=== PATIENT | female | born 1950 | race Caucasian/White ===

== ENCOUNTER 2017-12-08 20:45 | Inpatient (IN) | payer MEDICARE, MEDICAID ==
--- NOTE | 2017-12-08 20:55 | ED Physician Chart ---
ED Chief Complaint/HPI - Patient Information Date Seen:: 12/08/17 Time Seen:: 20:45 Chief Complaint:: Agitation History of Present Illness:: onset x one day of agitation and aggressive behavior; no report of SIs, trauma, H/as, neck pain, C/P, SOB, Abd. pain, A/N/V/D/C, fever, chills, or urinary s/s Historian:: Patient, EMS Review:: Nurse's Note Reviewed, Old Chart Reviewed, EMS run form Reviewed ED Review of Systems - Review of Systems General/Constitutional: No fever, No chills, No weight loss, No weakness, No diaphoresis, No edema, No loss of appetite Skin: No skin lesions, No rash, No bruising Head: No headache, No light-headedness Eyes: No loss of vision, No pain, No diplopia ENT: No earache, No nasal drainage, No sore throat, No tinnitus Neck: No neck pain, No swelling, No thyromegaly, No stiffness, No mass noted Cardio Vascular: No chest pain, No palpitations, No PND, No orthopnea, No edema Pulmonary: No SOB, No cough, No sputum, No wheezing GI: No nausea, No vomiting, No diarrhea, No pain, No melena, No hematochezia, No constipation, No hematemesis G/U: No dysuria, No frequency, No hematuria, No nacturia Dehydration Plant Operator: No vaginal discharge, No abnormal vaginal bleed, No contraction Musculoskeletal: No bone or joint pain, No back pain, No muscle pain Endocrine: No polyuria, No polydipsia Psychiatric: Prior psych history, No depression, Anxiety, No suicidal ideation, No homicidal ideation, No auditory hallucination, No visual hallucination Hematopoietic: No bruising, No lymphadenopathy Allergic/Immuno: No urticaria, No angioedema Neurological: No syncope, No focal symptoms, No weakness, No paresthesia, No headache, No seizure, No dizziness, No confusion, No vertigo ED Past Medical History - Past Medical History Obtainable: Yes Past Medical History: HTN, CAD, Dyslipidemia Family History: Heart disease, HTN Social History: Non Smoker, No Alcohol, No Drug Use, Single, Care Facility Surgical History: CABG Psychiatricy History: Bipolar Medication: Reviewed Family Medical History - Family Member Mother History Unknown: Yes ED Physical Exam - Physical Examination General/Constitutional: Awake, Well-developed, well-nourished, Alert, No distress, GCS 15, Non-toxic appearing, Ambulatory Head: Atraumatic Eyes: Lids, conjuctiva normal, PERRL, EOMI Skin: Nl inspection, No rash, No skin lesions, No ecchymosis, Well hydrated, No lymphadenopathy ENMT: External ears, nose nl, TM canals nl, Nasal exam nl, Lips, teeth, gums nl , Oropharynx nl, Tonsils nl Neck: Nontender, Full ROM w/o pain, No JVD, No nuchal rigidity, No bruit, No mass, No stridor Respiratory: Nl effort/Exclusion, Clear to Auscultation, No Wheeze/Rhonchi/Rales Cardio Vascular: RRR, No murmur, gallop, rubs, NL S1 S2, Carotid/Femoral/Distal pulses equal bilaterally GI: No tenderness/rebounding/guarding, No organomegaly, No hernia, Normal BS's, Nondistended, No mass/bruits, No McBurney tenderness : No CVA tenderness Extremities: No tenderness or effusion, Full ROM, normal strength in all extremities, No edema, Normal digits & nails Neuro/Psych: Alert/oriented, DTR's symmetric, Normal sensory exam, Normal motor strength, Judgement/insight normal, Mood normal, Normal gait, No focal deficits Misc: Normal back, No paraspinal tenderness ED Labs/Radiology/EKG Results - Lab Results Comments:: U/A: + Nitrates; + Bacteria - EKG Interpretations EKG Time:: 21:00 Rate & Rhythm: 65; NSR Comments:: non-specific st-t changes ED Septic Shock - . Is Septic Shock (SBP<90, OR Lactate>4 mmol\L) present?: No ED Reassessment (Disposition) - Reassessment Reassessment Condition:: Improved - Diagnosis Diagnosis:: UTI; Agitation; Psychosis; Bipolar Disorder; Medical Clearance - Aftercare/Follow up Instructions Aftercare/Follow-Up Instructions:: Counseled pt regarding lab results/diagnosis & need follow up, Counseled pt & family regarding lab results/diagnosis & need follow up - Patient Disposition Discharge/Transfer:: Acute Care w/in this hosp Admitted to:: [facility] Condition at Disposition:: Stable, Improved
[2017-12-08] MEDS ORDERED: Haloperidol Lactate 5 mg/mL 1mL Vial IM STA (23:09)
[2017-12-08] MEDS ORDERED: Haloperidol Lactate 5 mg/mL 1mL Vial ONE (23:16)
[2017-12-08 23:51] LABS: URINE MICROSCOPIC INDICATED? YES; URINE SOURCE CLEAN C
[2017-12-09 00:02] LABS: URINE BILIRUBIN NEGATIVE (NEGATIVE); URINE BLOOD NEGATIVE (NEGATIVE); URINE GLUCOSE (UA) NEGATIVE (NEGATIVE); URINE KETONE NEGATIVE (NEGATIVE); URINE LEUKOCYTE ESTERASE NEGATIVE (NEGATIVE); URINE NITRATE POSITIVE (NEGATIVE); URINE PROTEIN NEGATIVE (NEGATIVE); URINE UROBILINOGEN 0.2 E.U./dL (0.2 - 1.0)
[2017-12-09 00:04] LABS: URINE CLARITY CLEAR (CLEAR); URINE COLOR YELLOW
[2017-12-09 00:05] LABS: URINE BACTERIA MODERATE /hpf (NONE SEEN); URINE EPITHELIAL CELLS FEW /lpf (FEW); URINE RBC 0-2 /hpf (0-5); URINE WBC 0-2 /hpf (0-5)
[2017-12-09 00:20] LABS: AMPHETAMINE URINE NEGATIVE (NEGATIVE); BARBITURATES URINE NEGATIVE (NEGATIVE); BENZODIAZEPINES QUAL URINE POSITIVE (NEGATIVE); CANNABINOID THC NEGATIVE (NEGATIVE); COCAINE METABOLITE QUAL URINE NEGATIVE (NEGATIVE); METHADONE URINE NEGATIVE (NEGATIVE); METHAMPHETAMINES QUAL URINE NEGATIVE (NEGATIVE); OPIATES (MORPHINE) QUAL. URINE NEGATIVE (NEGATIVE); PHENCYCLIDINE (PCP) URINE NEGATIVE (NEGATIVE); TRICYCLICS (TCA) QUAL. URINE NEGATIVE (NEGATIVE)
[2017-12-09 00:33] LABS: % BASOPHILS 3.3 % (0.0-2.0); % EOSINOPHILS 3.1 % (0.0-5.0); % LYMPHOCYTES 46.1 % (20.0-50.0); % MONOCYTES 2.9 % (2.0-10.0); % NEUTROPHILS 44.6 % (40.0-80.0); BASOPHILE ABSOLUTE 0.2 Th/cumm (0-0.2); EOSINOPHILE ABSOLUTE 0.1 Th/cmm (0.1-0.4); HEMATOCRIT 37.6 % (41.0-60); HEMOGLOBIN 12.1 gm/dL (12-16); LYMPHOCYTE ABSOLUTE 2.1 Th/cmm (1.5-3.0); MEAN CELL VOLUME 75.2 fl (81-100); MEAN CORPUSCULAR HEMOGLOBIN 24.2 pg (27.0-31.0); MEAN CORPUSCULAR HGB CONC 32.2 pg (28.0-36.0); MEAN PLATELET VOLUME 8.2 fl; MONOCYTE ABSOLUTE 0.1 Th/cmm (0.3-1.0); NEUTROPHILE ABSOLUTE 2.1 Th/cmm (1.8-8.0); PLATELET COUNT 244 Th/cmm (150-400); RED CELL DISTRIBUTION WIDTH 15.8 % (11.5-20.0)
[2017-12-09 01:09] LABS: WHITE BLOOD COUNT 4.6 Th/cmm (4.8-10.8)
[2017-12-09 01:15] LABS: ALB/GLOB RATIO 1.2 (1.0-1.8); ALBUMIN 3.7 gm/dL (3.7-5.3); ALKALINE PHOSPHATASE 88 U/L (34-104); ANION GAP 12.9 (7.0-16.0); BILIRUBIN,TOTAL 0.7 mg/dL (0.3-1.0); BUN - UREA NITROGEN 20 mg/dL (7-25); CALCIUM SERUM 9.5 mg/dL (8.6-10.3); CARBON DIOXIDE 28.6 mEq/L (21.0-31.0); CHLORIDE 99 mEq/L (98-107); CHOLESTEROL 137 mg/dL (<200); CREATININE - SERUM 1.1 mg/dL (0.6-1.2); GFR AFRICAN-AMERICAN > 60.0 ml/min (>90); GFR NON AFRICAN-AMERICAN 52.8 ml/min; GLUCOSE 122 mg/dL (70-105); HDL -HIGH DENSITY LIPOPROTEIN 56 mg/dL (23-92); POTASSIUM SERUM 3.5 mEq/L (3.5-5.1); SGOT 25 U/L (13-39); SGPT/ALT 13 U/L (7-52); SODIUM SERUM 137 mEq/L (136-145); TOTAL PROTEIN,SERUM 6.8 gm/dL (6.0-8.3); TRIGLYCERIDES 87 mg/dL (<150)
[2017-12-09 01:32] LABS: ACETAMINOPHEN < 10.0 ug/mL (10.0-30.0); SALICYLATES (ASPIRIN) < 25.0 mg/L (30.0-100.0)
[2017-12-09 03:26] VITALS: BP 167/97
[2017-12-09] MEDS: Diltiazem 30 mg Tab PO SCH (09:31)
[2017-12-09] MEDS ORDERED: Non-Formulary Item 1 EA (Meloxicam [Meloxicam] 15 MG) PO SCH (21:00)
[2017-12-10] MEDS: Diltiazem 30 mg Tab PO SCH (08:22)
--- NOTE | 2017-12-10 12:43 | History & Physical ---
ADMIT DATE: 12/09/2017 HISTORY OF PRESENT ILLNESS: The patient basically very well known to me. The patient came in for severe agitation. The patient is known to have history of COPD, history of heart disease, status post pacemaker, history of fibromyalgia and history of bipolar disorder. REVIEW OF SYSTEMS: Basically complaining of no chest pain, no abdominal pain, no nausea, vomiting, no shortness of breath and no seizures. PAST MEDICAL HISTORY: As enumerated above. The patient has a history of hypertension, history of coronary artery disease status post pacemaker, history of hyperlipidemia and the patient has COPD, history of fibromyalgia. PHYSICAL EXAMINATION: HEAD: Normal. ENT: Normal. NECK: Supple, nontender. LUNGS: Clear. CARDIOVASCULAR SYSTEM: S1, S2 heard. ABDOMEN: Soft. Bowel sounds are heard. CENTRAL NERVOUS SYSTEM: Grossly normal except agitation. DIAGNOSES: Acute agitation, acute psychosis, bipolar disorder, UTI, history of pacemaker and history of severe neuropathy and I will follow the patient medically and I will have Dr. Us see the patient and I will follow the patient. JOB# [id number]
--- NOTE | 2017-12-10 13:51 | History & Physical ---
ADMIT DATE: 12/10/2017 IDENTIFYING INFORMATION: The patient is a 67-year-old female. CHIEF COMPLAINT: No answer. HISTORY OF PRESENT ILLNESS: The patient was admitted because of aggressive behavior, verbally abusive. She was very agitated. The patient was psychotic, history of bipolar disorder. The patient herself was a poor historian and she was upset, would not answer any of my question, unpredictable, impulsive, needing redirection. PAST PSYCHIATRIC HISTORY: Bipolar disorder. MEDICATIONS: The patient has been on Lamictal 100 mg daily, Neurontin 600 mg 3 times a day and Cymbalta 60 mg daily. FAMILY AND SOCIAL HISTORY: The patient was very agitated, would not participate with me in any conversation, very agitated. MEDICAL HISTORY: Deferred to Dr. Joseph, apparently he knows the patient well and has been treating her for a while and he has diagnosed her with COPD, UTI infection. She has a . MENTAL STATUS EXAMINATION: The patient is uncooperative, not wanting to answer any of my question. She wants to be out of here, unable to participate in meaningful conversation with a history of bipolar disorder, sleep, appetite, suicide and homicide, unable to test her memory, concentration because of her agitation. Insight and judgment is impaired. IMPRESSION: 1. Bipolar disorder with psychosis. 2. Early dementia MEDICAL DIAGNOSIS: As per Dr. Joseph. Her assets, she is accepting treatment. Negative poor coping skills. INITIAL TREATMENT PLAN: The patient will be continued with her medications. We will do group therapy, milieu therapy, and individual therapy. ESTIMATED LENGTH OF STAY: 3-7 days. DISCHARGE CRITERIA: Decrease agitation, no longer acting out. After discharge, outpatient. JOB# [id number]
[2017-12-11] MEDS: Diltiazem 30 mg Tab PO SCH (09:09)
--- NOTE | 2017-12-11 12:16 | General Progress Note ---
Subjective - Review of Systems Events since last encounter: patient irritable confused disorganized Objective - Results Result Diagrams: 12/09/17 00:29 12/09/17 00:40 Recent Labs: Laboratory Last Values WBC 4.6 Th/cmm (4.8-10.8) L 12/09/17 00:29 RBC 5.00 Mil/cmm (3.80-5.20) 12/09/17 00:29 Hgb 12.1 gm/dL (12-16) 12/09/17 00:29 Hct 37.6 % (41.0-60) L 12/09/17 00:29 MCV 75.2 fl (81-100) L 12/09/17 00:29 MCH 24.2 pg (27.0-31.0) L 12/09/17:29 MCHC Differential 32.2 pg (28.0-36.0) 12/09/17 00: RDW 15.8 % (11.5-20.0) 12/09/17 00: Plt Count 244 Th/cmm (150-400) 12/09/17 00:29 MPV 8.2 fl 12/09/17 00:29 Neutrophils % 44.6 % (40.0-80.0) 12/09/17: Lymphocytes % 46.1 % (20.0-50.0) 12/09/17 00: Monocytes % 2.9 % (2.0-10.0) 12/09/17 00: Eosinophils % 3.1 % (0.0-5.0) 12/09/17 00: Basophils % 3.3 % (0.0-2.0) H 12/09/17 00:29 Sodium 137 mEq/L (136-145) 12/09/17 00:40 Potassium 3.5 mEq/L (3.5-5.1) 12/09/17 00:40 Chloride 99 mEq/L (98-107) 12/09/17 00:40 Carbon Dioxide 28.6 mEq/L (21.0-31.0) 12/09/17 00:40 Anion Gap 12.9 (7.0-16.0) 12/09/17 00:40 BUN 20 mg/dL (7-25) 12/09/17 00:40 Creatinine 1.1 mg/dL (0.6-1.2) 12/09/17 00:40 Est GFR ( Amer) > 60.0 ml/min (>90) 12/09/17 00:40 Est GFR (Non-Af Amer) 52.8 ml/min 12/09/17 00:40 BUN/Creatinine Ratio 18.2 12/09/17 00:40 Glucose 122 mg/dL (70-105) H 12/09/17 00:40 POC Glucose 127 MG/DL (70 - 105) H 12/10/17 06:33 Hemoglobin A1c % 7.0 % (4.0-6.0) H 12/09/17 00:40 Calcium 9.5 mg/dL (8.6-10.3) 12/09/17 00:40 Total Bilirubin 0.7 mg/dL (0.3-1.0) 12/09/17 00:40 AST 25 U/L (13-39) 12/09/17 00:40 ALT 13 U/L (7-52) 12/09/17 00:40 Alkaline Phosphatase 88 U/L (34-104) 12/09/17 00:40 Total Protein 6.8 gm/dL (6.0-8.3) 12/09/17 00:40 Albumin 3.7 gm/dL (3.7-5.3) 12/09/17 00:40 Globulin 3.1 gm/dL 12/09/17 00:40 Albumin/Globulin Ratio 1.2 (1.0-1.8) 12/09/17 00:40 Triglycerides 87 mg/dL (<150) 12/09/17 00:40 Cholesterol 137 mg/dL (<200) 12/09/17 00:40 LDL Cholesterol Direct 63 mg/dL (75-193) L 12/09/17 00:40 HDL Cholesterol 56 mg/dL (23-92) 12/09/17 00:40 TSH 0.34 uIU/ml (0.34-5.60) 12/09/17 00:40 Urine Source CLEAN C 12/08/17 23:40 Urine Color YELLOW 12/08/17 23:40 Urine Clarity CLEAR (CLEAR) 12/08/17 23:40 Urine pH 6.0 (4.6 - 8.0) 12/08/17 23:40 Ur Specific [place] 1.010 (1.005-1.030) 12/08/17 23:40 Urine Protein NEGATIVE mg/dL (NEGATIVE) 12/08/17 23:40 Urine Glucose (UA) NEGATIVE mg/dL (NEGATIVE) 12/08/17 23:40 Urine Ketones NEGATIVE mg/dL (NEGATIVE) 12/08/17 23:40 Urine Blood NEGATIVE (NEGATIVE) 12/08/17 23:40 Urine Nitrate POSITIVE (NEGATIVE) H 12/08/17 23:40 Urine Bilirubin NEGATIVE (NEGATIVE) 12/08/17 23:40 Urine Urobilinogen 0.2 E.U./dL (0.2 - 1.0) 12/08/17 23:40 Ur Leukocyte Esterase NEGATIVE (NEGATIVE) 12/08/17 23:40 Urine RBC 0-2 /hpf (0-5) 12/08/17 23:40 Urine WBC 0-2 /hpf (0-5) 12/08/17 23:40 Ur Epithelial Cells FEW /lpf (FEW) 12/08/17 23:40 Urine Bacteria MODERATE /hpf (NONE SEEN) H 12/08/17 23:40 Salicylates < 25.0 mg/L (30.0-100.0) L 12/09/17 00:40 Urine Opiates Screen NEGATIVE (NEGATIVE) 12/08/17 23:40 Urine Methadone Screen NEGATIVE (NEGATIVE) 12/08/17 23:40 Acetaminophen < 10.0 ug/mL (10.0-30.0) L 12/09/17 00:40 Ur Barbiturates Screen NEGATIVE (NEGATIVE) 12/08/17 23:40 Ur Tricyclics Screen NEGATIVE (NEGATIVE) 12/08/17 23:40 Ur Phencyclidine Scrn NEGATIVE (NEGATIVE) 12/08/17 23:40 Amphetamines Screen NEGATIVE (NEGATIVE) 12/08/17 23:40 U Methamphetamines Scrn NEGATIVE (NEGATIVE) 12/08/17 23:40 U Benzodiazepines Scrn POSITIVE (NEGATIVE) H 12/08/17 23:40 U Cocaine Metab Screen NEGATIVE (NEGATIVE) 12/08/17 23:40 U Cannabinoids Screen NEGATIVE (NEGATIVE) 12/08/17 23:40 Ethyl Alcohol < 10 mg/dL (0-10) 12/09/17 00:40 RPR NONREACTIVE (NONREACTIVE) 12/09/17 00:40 - Physical Exam Vitals and I&O: Vital Signs Temp 97.5 F 12/11/17 06:43 Pulse 69 12/11/17 09:15 Resp 20 12/11/17 06:43 BP 187/79 12/11/17 09:15 Pulse Ox 97 12/11/17 06:43 Intake & Output 12/10/17 12/11/17 12/11/17 18:59 06:59 18:59 Intake Total 500 480 Balance 500 480 Intake: Oral 500 480 Other: # Voids 4 1 # Bowel Movements 0 Stool Characteristics Formed Active Medications: Current Medications Aspirin (Ecotrin) 81 mg PO DAILY [facility] Stop: 02/07/18 08:59 Last Admin: 12/11/17 09:18 Dose: 81 mg Baclofen (Lioresal) 10 mg PO BID [facility] Stop: 02/07/18 08:59 Last Admin: 12/11/17 09:18 Dose: 10 mg Cholecalciferol (Vitamin D3) 2,000 iu PO DAILY [facility] Stop: 02/07/18 08:59 Last Admin: 12/11/17 09:16 Dose: 2,000 iu Diclofenac Sodium (Voltaren) 25 mg PO HS [facility] Stop: 02/08/18 20:59 Last Admin: 12/10/17 21:37 Dose: Not Given Diltiazem HCl (Cardizem) 30 mg PO DAILY [facility] Stop: 02/07/18 08:59 Last Admin: 12/10/17 08:22 Dose: 30 mg Docusate Sodium (Colace) 250 mg PO DAILY [facility] Stop: 02/07/18 08:59 Last Admin: 12/11/17 09:16 Dose: 250 mg Duloxetine HCl (Cymbalta) 60 mg PO DAILY [facility] Stop: 02/07/18 08:59 Last Admin: 12/11/17 09:15 Dose: 60 mg Famotidine (Pepcid) 20 mg PO BID [facility] Stop: 02/07/18 08:59 Last Admin: 12/11/17 09:17 Dose: 20 mg Gabapentin (Neurontin) 600 mg PO TID [facility] Stop: 02/07/18 08:59 Last Admin: 12/11/17 09:18 Dose: 600 mg Lamotrigine (Lamictal) 100 mg PO DAILY [facility] PRN Reason: Protocol Stop: 02/07/18 08:59 Last Admin: 12/11/17 09:17 Dose: 100 mg Lorazepam (Ativan) 1 mg PO Q6HR PRN; Protocol PRN Reason: Anxiety Stop: 02/07/18 03:14 Last Admin: 12/11/17 09:16 Dose: 1 mg Memantine (Namenda) 10 mg PO DAILY [facility] Stop: 02/07/18 08:59 Last Admin: 12/11/17 09:17 Dose: 10 mg Metformin HCl (Glucophage) 1,000 mg PO BIDWM [facility] Stop: 02/07/18 07:59 Last Admin: 12/11/17 08:23 Dose: 1,000 mg Nitroglycerin (Nitrostat) 0.4 mg SL Q5MIN PRN PRN Reason: Chest Pain Stop: 02/07/18 03:14 Oxybutynin Chloride (Ditropan) 5 mg PO BID [facility] Stop: 02/07/18 08:59 Last Admin: 12/11/17 09:17 Dose: 5 mg Pyridostigmine [place] (Mestinon) 60 mg PO BID [facility] Stop: 02/07/18 08:59 Last Admin: 12/11/17 09:25 Dose: 60 mg Quetiapine Fumarate (Seroquel) 12.5 mg PO BID [facility] PRN Reason: Protocol Stop: 02/07/18 08:59 Last Admin: 12/11/17 09:18 Dose: 12.5 mg Tramadol HCl (Ultram) 50 mg PO BID PRN PRN Reason: Pain (Mild) Stop: 02/07/18 03:14 Last Admin: 12/10/17 05:23 Dose: 50 mg Trazodone HCl (Desyrel) 50 mg PO [facility] PRN Reason: Protocol Stop: 02/07/18 20:59 Last Admin: 12/10/17 21:35 Dose: 50 mg Valsartan (Diovan) 160 mg PO BID [facility] Stop: 02/07/18 08:59 Last Admin: 12/11/17 09:15 Dose: 160 mg
--- NOTE | 2017-12-12 02:04 | Progress Notes ---
DATE: 12/11/[address] Us. SUBJECTIVE: Case discussed with staff of the patient. The patient today was calmer, less agitated; however, she reported that this is March. She is not sure of the date. She is confused. She does not believe she needs to be here. She has no idea why she was brought here, have no idea where she was, very agitated upon admission. She was psychotic. She continues to be unable to make safe plan for self-care or participate in a meaningful conversation. No side effects with the medication and she is also demented. She is on Namenda 10 mg daily and she is on Cymbalta 60 mg daily, Seroquel 12.5 mg twice a day with no side effects, no sedation, no nausea, no extrapyramidal symptoms. PLAN: We will continue to work with the patient in group therapy, milieu therapy, and adjust the medications as needed. JOB# [id number]
[2017-12-12] MEDS: Diltiazem 30 mg Tab PO SCH (08:45)
--- NOTE | 2017-12-12 20:28 | Internal Medicine Prog Note ---
Internal Medicine Objective - Results Result Diagrams: 12/09/17 00:29 12/09/17 00:40 Recent Labs: Laboratory Last Values WBC 4.6 Th/cmm (4.8-10.8) L 12/09/17 00:29 RBC 5.00 Mil/cmm (3.80-5.20) 12/09/17 00:29 Hgb 12.1 gm/dL (12-16) 12/09/17 00: Hct 37.6 % (41.0-60) L 12/09/17:29 MCV 75.2 fl (81-100) L 12/09/17 00:29 MCH 24.2 pg (27.0-31.0) L 12/09/17: MCHC Differential 32.2 pg (28.0-36.0) 12/09/17 00: RDW 15.8 % (11.5-20.0) 12/09/17 00: Plt Count 244 Th/cmm (150-400) 12/09/17 00: MPV 8.2 fl 12/09/17 00: Neutrophils % 44.6 % (40.0-80.0) 12/09/17 00: Lymphocytes % 46.1 % (20.0-50.0) 12/09/17: Monocytes % 2.9 % (2.0-10.0) 12/09/17: Eosinophils % 3.1 % (0.0-5.0) 12/09/17: Basophils % 3.3 % (0.0-2.0) H 12/09/17 00:29 Sodium 137 mEq/L (136-145) 12/09/17 00:40 Potassium 3.5 mEq/L (3.5-5.1) 12/09/17 00:40 Chloride 99 mEq/L (98-107) 12/09/17 00:40 Carbon Dioxide 28.6 mEq/L (21.0-31.0) 12/09/17 00:40 Anion Gap 12.9 (7.0-16.0) 12/09/17 00:40 BUN 20 mg/dL (7-25) 12/09/17 00:40 Creatinine 1.1 mg/dL (0.6-1.2) 12/09/17 00:40 Est GFR ( Amer) > 60.0 ml/min (>90) 12/09/17 00:40 Est GFR (Non-Af Amer) 52.8 ml/min 12/09/17 00:40 BUN/Creatinine Ratio 18.2 12/09/17 00:40 Glucose 122 mg/dL (70-105) H 12/09/17 00:40 POC Glucose 127 MG/DL (70 - 105) H 12/10/17 06:33 Hemoglobin A1c % 7.0 % (4.0-6.0) H 12/09/17 00:40 Calcium 9.5 mg/dL (8.6-10.3) 12/09/17 00:40 Total Bilirubin 0.7 mg/dL (0.3-1.0) 12/09/17 00:40 AST 25 U/L (13-39) 12/09/17 00:40 ALT 13 U/L (7-52) 12/09/17 00:40 Alkaline Phosphatase 88 U/L (34-104) 12/09/17 00:40 Total Protein 6.8 gm/dL (6.0-8.3) 12/09/17 00:40 Albumin 3.7 gm/dL (3.7-5.3) 12/09/17 00:40 Globulin 3.1 gm/dL 12/09/17 00:40 Albumin/Globulin Ratio 1.2 (1.0-1.8) 12/09/17 00:40 Triglycerides 87 mg/dL (<150) 12/09/17 00:40 Cholesterol 137 mg/dL (<200) 12/09/17 00:40 LDL Cholesterol Direct 63 mg/dL (75-193) L 12/09/17 00:40 HDL Cholesterol 56 mg/dL (23-92) 12/09/17 00:40 TSH 0.34 uIU/ml (0.34-5.60) 12/09/17 00:40 Urine Source CLEAN C 12/08/17 23:40 Urine Color YELLOW 04 23:40 Urine Clarity CLEAR (CLEAR) 12/08/17 23:40 Urine pH 6.0 (4.6 - 8.0) 12/08/17 23:40 Ur Specific [place] 1.010 (1.005-1.030) 12/08/17 23:40 Urine Protein NEGATIVE mg/dL (NEGATIVE) 12/08/17 23:40 Urine Glucose (UA) NEGATIVE mg/dL (NEGATIVE) 12/08/17 23:40 Urine Ketones NEGATIVE mg/dL (NEGATIVE) 12/08/17 23:40 Urine Blood NEGATIVE (NEGATIVE) 12/08/17 23:40 Urine Nitrate POSITIVE (NEGATIVE) H 12/08/17 23:40 Urine Bilirubin NEGATIVE (NEGATIVE) 12/08/17 23:40 Urine Urobilinogen 0.2 E.U./dL (0.2 - 1.0) 12/08/17 23:40 Ur Leukocyte Esterase NEGATIVE (NEGATIVE) 12/08/17 23:40 Urine RBC 0-2 /hpf (0-5) 12/08/17 23:40 Urine WBC 0-2 /hpf (0-5) 12/08/17 23:40 Ur Epithelial Cells FEW /lpf (FEW) 12/08/17 23:40 Urine Bacteria MODERATE /hpf (NONE SEEN) H 12/08/17 23:40 Salicylates < 25.0 mg/L (30.0-100.0) L 12/09/17 00:40 Urine Opiates Screen NEGATIVE (NEGATIVE) 12/08/17 23:40 Urine Methadone Screen NEGATIVE (NEGATIVE) 12/08/17 23:40 Acetaminophen < 10.0 ug/mL (10.0-30.0) L 12/09/17 00:40 Ur Barbiturates Screen NEGATIVE (NEGATIVE) 12/08/17 23:40 Ur Tricyclics Screen NEGATIVE (NEGATIVE) 12/08/17 23:40 Ur Phencyclidine Scrn NEGATIVE (NEGATIVE) 12/08/17 23:40 Amphetamines Screen NEGATIVE (NEGATIVE) 12/08/17 23:40 U Methamphetamines Scrn NEGATIVE (NEGATIVE) 12/08/17 23:40 U Benzodiazepines Scrn POSITIVE (NEGATIVE) H 12/08/17 23:40 U Cocaine Metab Screen NEGATIVE (NEGATIVE) 12/08/17 23:40 U Cannabinoids Screen NEGATIVE (NEGATIVE) 12/08/17 23:40 Ethyl Alcohol < 10 mg/dL (0-10) 12/09/17 00:40 RPR NONREACTIVE (NONREACTIVE) 12/09/17 00:40 - Physical Exam Vitals and I&O: Vital Signs Temp 97.7 F 12/12/17 14:00 Pulse 61 12/12/17 17:17 Resp 20 12/12/17 14:00 BP 128/66 12/12/17 17:17 Pulse Ox 97 12/12/17 14:00 Intake & Output 12/12/17 12/12/17 12/13/17 06:59 18:59 06:59 Intake Total 240 1600 Balance 240 1600 Intake: Oral 240 1600 Other: # Voids 1 4 # Bowel Movements 1 Active Medications: Current Medications Aspirin (Ecotrin) 81 mg PO DAILY [facility] Stop: 02/07/18 08:59 Last Admin: 12/12/17 08:39 Dose: 81 mg Baclofen (Lioresal) 10 mg PO BID [facility] Stop: 02/07/18 08:59 Last Admin: 12/12/17 17:16 Dose: 10 mg Cholecalciferol (Vitamin D3) 2,000 iu PO DAILY [facility] Stop: 02/07/18 08:59 Last Admin: 12/12/17 08:37 Dose: 2,000 iu Diclofenac Sodium (Voltaren) 25 mg PO HS [facility] Stop: 02/08/18 20:59 Last Admin: 12/11/17 21:08 Dose: 25 mg Diltiazem HCl (Cardizem) 30 mg PO DAILY [facility] Stop: 02/07/18 08:59 Last Admin: 12/12/17 08:45 Dose: 30 mg Docusate Sodium (Colace) 250 mg PO DAILY [facility] Stop: 02/07/18 08:59 Last Admin: 12/12/17 08:36 Dose: 250 mg Duloxetine HCl (Cymbalta) 60 mg PO DAILY [facility] Stop: 02/07/18 08:59 Last Admin: 12/12/17 08:37 Dose: 60 mg Famotidine (Pepcid) 20 mg PO BID [facility] Stop: 02/07/18 08:59 Last Admin: 12/12/17 17:17 Dose: 20 mg Gabapentin (Neurontin) 600 mg PO TID [facility] Stop: 02/07/18 08:59 Last Admin: 12/12/17 13:42 Dose: 600 mg Lamotrigine (Lamictal) 100 mg PO DAILY [facility] PRN Reason: Protocol Stop: 02/07/18 08:59 Last Admin: 12/12/17 08:40 Dose: 100 mg Lorazepam (Ativan) 1 mg PO Q6HR PRN; Protocol PRN Reason: Anxiety Stop: 02/07/18 03:14 Last Admin: 12/12/17 10:02 Dose: 1 mg Memantine (Namenda) 10 mg PO DAILY [facility] Stop: 02/07/18 08:59 Last Admin: 12/12/17 08:39 Dose: 10 mg Metformin HCl (Glucophage) 1,000 mg PO BIDWM [facility] Stop: 02/07/18 07:59 Last Admin: 12/12/17 17:16 Dose: 1,000 mg Nitroglycerin (Nitrostat) 0.4 mg SL Q5MIN PRN PRN Reason: Chest Pain Stop: 02/07/18 03:14 Oxybutynin Chloride (Ditropan) 5 mg PO BID [facility] Stop: 02/07/18 08:59 Last Admin: 12/12/17 17:16 Dose: 5 mg Pyridostigmine [place] (Mestinon) 60 mg PO BID [facility] Stop: 02/07/18 08:59 Last Admin: 12/12/17 08:44 Dose: 60 mg Quetiapine Fumarate (Seroquel) 12.5 mg PO BID [facility] PRN Reason: Protocol Stop: 02/07/18 08:59 Last Admin: 12/12/17 17:17 Dose: 12.5 mg Tramadol HCl (Ultram) 50 mg PO BID PRN PRN Reason: Pain (Mild) Stop: 02/07/18 03:14 Last Admin: 12/12/17 10:02 Dose: 50 mg Trazodone HCl (Desyrel) 50 mg PO [facility] PRN Reason: Protocol Stop: 02/07/18 20:59 Last Admin: 12/11/17 21:08 Dose: 50 mg Valsartan (Diovan) 160 mg PO BID [facility] Stop: 02/07/18 08:59 Last Admin: 12/12/17 17:17 Dose: 160 mg
--- NOTE | 2017-12-12 23:47 | Progress Notes ---
DATE: 12/12/2017 Case discussed with staff of the patient, reviewed records. The patient today is alert. She is able to communicate. She reports she sleeps well, eat well. She was denying that she was hearing voices. She was much more cooperative. She is still, however, unpredictable, impulsive with her behavior ____, is extremely agitated and psychotic the first 2 days. She is diagnosed with dementia. Dr. Us had her on Namenda 10 mg daily and she is on Cymbalta 60 mg a day with no side effects and we will continue to work with the patient in group therapy, milieu therapy, and adjust medications. JOB# [id number]
[2017-12-13] MEDS: Diltiazem 30 mg Tab PO SCH (09:12)
--- NOTE | 2017-12-13 20:17 | Internal Medicine Prog Note ---
Internal Medicine Subjective - Subjective Service Date: 12/13/17 Patient seen and examined:: with staff Patient is:: awake Per staff patient has:: tolerating meds Internal Medicine Objective - Results Result Diagrams: 12/09/17 00:29 12/09/17 00:40 Recent Labs: Laboratory Last Values WBC 4.6 Th/cmm (4.8-10.8) L 12/09/17 00:29 RBC 5.00 Mil/cmm (3.80-5.20) 12/09/17 00:29 Hgb 12.1 gm/dL (12-16) 12/09/17 00:29 Hct 37.6 % (41.0-60) L 12/09/17 00:29 MCV 75.2 fl (81-100) L 12/09/17 00:29 MCH 24.2 pg (27.0-31.0) L 12/09/17 00:29 MCHC Differential 32.2 pg (28.0-36.0) 12/09/17 00:29 RDW 15.8 % (11.5-20.0) 12/09/17 00:29 Plt Count 244 Th/cmm (150-400) 12/09/17 00:29 MPV 8.2 fl 12/09/17 00:29 Neutrophils % 44.6 % (40.0-80.0) 12/09/17 00:29 Lymphocytes % 46.1 % (20.0-50.0) 12/09/17 00:29 Monocytes % 2.9 % (2.0-10.0) 12/09/17 00:29 Eosinophils % 3.1 % (0.0-5.0) 12/09/17 00:29 Basophils % 3.3 % (0.0-2.0) H 12/09/17 00:29 Sodium 137 mEq/L (136-145) 12/09/17 00:40 Potassium 3.5 mEq/L (3.5-5.1) 12/09/17 00:40 Chloride 99 mEq/L (98-107) 12/09/17 00:40 Carbon Dioxide 28.6 mEq/L (21.0-31.0) 12/09/17 00:40 Anion Gap 12.9 (7.0-16.0) 12/09/17 00:40 BUN 20 mg/dL (7-25) 12/09/17 00:40 Creatinine 1.1 mg/dL (0.6-1.2) 12/09/17 00:40 Est GFR ( Amer) > 60.0 ml/min (>90) 12/09/17 00:40 Est GFR (Non-Af Amer) 52.8 ml/min 12/09/17 00:40 BUN/Creatinine Ratio 18.2 12/09/17 00:40 Glucose 122 mg/dL (70-105) H 12/09/17 00:40 POC Glucose 127 MG/DL (70 - 105) H 12/10/17 06:33 Hemoglobin A1c % 7.0 % (4.0-6.0) H 12/09/17 00:40 Calcium 9.5 mg/dL (8.6-10.3) 12/09/17 00:40 Total Bilirubin 0.7 mg/dL (0.3-1.0) 12/09/17 00:40 AST 25 U/L (13-39) 12/09/17 00:40 ALT 13 U/L (7-52) 12/09/17 00:40 Alkaline Phosphatase 88 U/L (34-104) 12/09/17 00:40 Total Protein 6.8 gm/dL (6.0-8.3) 12/09/17 00:40 Albumin 3.7 gm/dL (3.7-5.3) 12/09/17 00:40 Globulin 3.1 gm/dL 12/09/17 00:40 Albumin/Globulin Ratio 1.2 (1.0-1.8) 12/09/17 00:40 Triglycerides 87 mg/dL (<150) 12/09/17 00:40 Cholesterol 137 mg/dL (<200) 12/09/17 00:40 LDL Cholesterol Direct 63 mg/dL (75-193) L 12/09/17 00:40 HDL Cholesterol 56 mg/dL (23-92) 12/09/17 00:40 TSH 0.34 uIU/ml (0.34-5.60) 12/09/17 00:40 Urine Source CLEAN C 12/08/17 23:40 Urine Color YELLOW 12/08/17 23:40 Urine Clarity CLEAR (CLEAR) 12/08/17 23:40 Urine pH 6.0 (4.6 - 8.0) 12/08/17 23:40 Ur Specific [place] 1.010 (1.005-1.030) 12/08/17 23:40 Urine Protein NEGATIVE mg/dL (NEGATIVE) 12/08/17 23:40 Urine Glucose (UA) NEGATIVE mg/dL (NEGATIVE) 12/08/17 23:40 Urine Ketones NEGATIVE mg/dL (NEGATIVE) 12/08/17 23:40 Urine Blood NEGATIVE (NEGATIVE) 12/08/17 23:40 Urine Nitrate POSITIVE (NEGATIVE) H 12/08/17 23:40 Urine Bilirubin NEGATIVE (NEGATIVE) 12/08/17 23:40 Urine Urobilinogen 0.2 E.U./dL (0.2 - 1.0) 12/08/17 23:40 Ur Leukocyte Esterase NEGATIVE (NEGATIVE) 12/08/17 23:40 Urine RBC 0-2 /hpf (0-5) 12/08/17 23:40 Urine WBC 0-2 /hpf (0-5) 12/08/17 23:40 Ur Epithelial Cells FEW /lpf (FEW) 12/08/17 23:40 Urine Bacteria MODERATE /hpf (NONE SEEN) H 12/08/17 23:40 Salicylates < 25.0 mg/L (30.0-100.0) L 12/09/17 00:40 Urine Opiates Screen NEGATIVE (NEGATIVE) 12/08/17 23:40 Urine Methadone Screen NEGATIVE (NEGATIVE) 12/08/17 23:40 Acetaminophen < 10.0 ug/mL (10.0-30.0) L 12/09/17 00:40 Ur Barbiturates Screen NEGATIVE (NEGATIVE) 12/08/17 23:40 Ur Tricyclics Screen NEGATIVE (NEGATIVE) 12/08/17 23:40 Ur Phencyclidine Scrn NEGATIVE (NEGATIVE) 12/08/17 23:40 Amphetamines Screen NEGATIVE (NEGATIVE) 12/08/17 23:40 U Methamphetamines Scrn NEGATIVE (NEGATIVE) 12/08/17 23:40 U Benzodiazepines Scrn POSITIVE (NEGATIVE) H 12/08/17 23:40 U Cocaine Metab Screen NEGATIVE (NEGATIVE) 12/08/17 23:40 U Cannabinoids Screen NEGATIVE (NEGATIVE) 12/08/17 23:40 Ethyl Alcohol < 10 mg/dL (0-10) 12/09/17 00:40 RPR NONREACTIVE (NONREACTIVE) 12/09/17 00:40 - Physical Exam Vitals and I&O: Vital Signs Temp 97.6 F 12/13/17 16:06 Pulse 60 12/13/17 16:39 Resp 20 12/13/17 16:06 BP 130/73 12/13/17 16:38 Pulse Ox 96 12/13/17 16:06 Intake & Output 12/13/17 12/13/17 12/14/17 06:59 18:59 06:59 Intake Total 360 1200 Balance 360 1200 Intake: Oral 360 1200 Other: # Voids 2 3 # Bowel Movements 0 1 Active Medications: Current Medications Aspirin (Ecotrin) 81 mg PO DAILY [facility] Stop: 02/07/18 08:59 Last Admin: 12/13/17 08:37 Dose: 81 mg Baclofen (Lioresal) 10 mg PO BID [facility] Stop: 02/07/18 08:59 Last Admin: 12/13/17 16:38 Dose: 10 mg Cholecalciferol (Vitamin D3) 2,000 iu PO DAILY [facility] Stop: 02/07/18 08:59 Last Admin: 12/13/17 08:37 Dose: 2,000 iu Diclofenac Sodium (Voltaren) 25 mg PO HS [facility] Stop: 02/08/18 20:59 Last Admin: 12/12/17 21:12 Dose: 25 mg Diltiazem HCl (Cardizem) 30 mg PO DAILY [facility] Stop: 02/07/18 08:59 Last Admin: 12/13/17 09:12 Dose: 30 mg Docusate Sodium (Colace) 250 mg PO DAILY [facility] Stop: 02/07/18 08:59 Last Admin: 12/13/17 09:00 Dose: 250 mg Duloxetine HCl (Cymbalta) 60 mg PO DAILY [facility] Stop: 02/07/18 08:59 Last Admin: 12/13/17 08:00 Dose: 60 mg Famotidine (Pepcid) 20 mg PO BID [facility] Stop: 02/07/18 08:59 Last Admin: 12/13/17 16:38 Dose: 20 mg Gabapentin (Neurontin) 600 mg PO TID [facility] Stop: 02/07/18 08:59 Last Admin: 12/13/17 13:28 Dose: 600 mg Lamotrigine (Lamictal) 100 mg PO DAILY [facility] PRN Reason: Protocol Stop: 02/07/18 08:59 Last Admin: 12/13/17 08:37 Dose: 100 mg Lorazepam (Ativan) 1 mg PO Q6HR PRN; Protocol PRN Reason: Anxiety Stop: 02/07/18 03:14 Last Admin: 12/13/17 13:55 Dose: 1 mg Memantine (Namenda) 10 mg PO DAILY [facility] Stop: 02/07/18 08:59 Last Admin: 12/13/17 08:40 Dose: 10 mg Metformin HCl (Glucophage) 1,000 mg PO BIDWM [facility] Stop: 02/07/18 07:59 Last Admin: 12/13/17 17:29 Dose: 1,000 mg Nitroglycerin (Nitrostat) 0.4 mg SL Q5MIN PRN PRN Reason: Chest Pain Stop: 02/07/18 03:14 Oxybutynin Chloride (Ditropan) 5 mg PO BID [facility] Stop: 02/07/18 08:59 Last Admin: 12/13/17 16:39 Dose: 5 mg Pyridostigmine [place] (Mestinon) 60 mg PO BID [facility] Stop: 02/07/18 08:59 Last Admin: 12/13/17 17:16 Dose: 60 mg Quetiapine Fumarate (Seroquel) 25 mg PO BID [facility] PRN Reason: Protocol Stop: 02/11/18 16:59 Last Admin: 12/13/17 16:39 Dose: 25 mg Tramadol HCl (Ultram) 50 mg PO BID PRN PRN Reason: Pain (Mild) Stop: 02/07/18 03:14 Last Admin: 12/13/17 13:28 Dose: 50 mg Trazodone HCl (Desyrel) 50 mg PO HS [facility] PRN Reason: Protocol Stop: 02/07/18 20:59 Last Admin: 12/12/17 21:12 Dose: 50 mg Valsartan (Diovan) 160 mg PO BID [facility] Stop: 02/07/18 08:59 Last Admin: 12/13/17 16:38 Dose: 160 mg HEENT: NC/AT Neck: Supple Lungs: CTAB Internal Medicine Assmt/Plan - Assessment Assessment: psychosis anemia dm - Plan Plan: cpm
--- NOTE | 2017-12-14 03:52 | Progress Notes ---
DATE: 12/13/2017 SUBJECTIVE: Case is discussed with staff of the patient and reviewed records. The patient is more able to give information. She is alert. She reports this is her first hospitalization. She reports that she is sleeping better, eating better, compliant with the medication with no side effects, no sedation, no nausea, no extrapyramidal symptoms. PLAN: I will be increasing her Seroquel to 25 mg twice a day. We will continue to work with the patient in group therapy, milieu therapy, and adjust medication as needed. JOB# [id number]
[2017-12-14] MEDS: Diltiazem 30 mg Tab PO SCH (08:35)
[2017-12-14] MEDS: Hydrocodone/APAP 5mg/325mg Tab PO PRN (14:07)
--- NOTE | 2017-12-14 14:15 | General Progress Note ---
Subjective - Review of Systems Events since last encounter: in no distress Objective - Results Result Diagrams: 12/09/17 00:29 12/09/17 00:40 Recent Labs: Laboratory Last Values WBC 4.6 Th/cmm (4.8-10.8) L 12/09/17 00:29 RBC 5.00 Mil/cmm (3.80-5.20) 12/09/17 00:29 Hgb 12.1 gm/dL (12-16) 12/09/17 00:29 Hct 37.6 % (41.0-60) L 12/09/17 00:29 MCV 75.2 fl (81-100) L 12/09/17 00: MCH 24.2 pg (27.0-31.0) L 12/09/17:29 MCHC Differential 32.2 pg (28.0-36.0) 12/09/17 00: RDW 15.8 % (11.5-20.0) 12/09/17 00: Plt Count 244 Th/cmm (150-400) 12/09/17 00:29 MPV 8.2 fl 12/09/17 00:29 Neutrophils % 44.6 % (40.0-80.0) 12/09/17: Lymphocytes % 46.1 % (20.0-50.0) 12/09/17: Monocytes % 2.9 % (2.0-10.0) 12/09/17 00: Eosinophils % 3.1 % (0.0-5.0) 12/09/17: Basophils % 3.3 % (0.0-2.0) H 12/09/17 00:29 Sodium 137 mEq/L (136-145) 12/09/17 00:40 Potassium 3.5 mEq/L (3.5-5.1) 12/09/17 00:40 Chloride 99 mEq/L (98-107) 12/09/17 00:40 Carbon Dioxide 28.6 mEq/L (21.0-31.0) 12/09/17 00:40 Anion Gap 12.9 (7.0-16.0) 12/09/17 00:40 BUN 20 mg/dL (7-25) 12/09/17 00:40 Creatinine 1.1 mg/dL (0.6-1.2) 12/09/17 00:40 Est GFR ( Amer) > 60.0 ml/min (>90) 12/09/17 00:40 Est GFR (Non-Af Amer) 52.8 ml/min 12/09/17 00:40 BUN/Creatinine Ratio 18.2 12/09/17 00:40 Glucose 122 mg/dL (70-105) H 12/09/17 00:40 POC Glucose 127 MG/DL (70 - 105) H 12/10/17 06:33 Hemoglobin A1c % 7.0 % (4.0-6.0) H 12/09/17 00:40 Calcium 9.5 mg/dL (8.6-10.3) 12/09/17 00:40 Total Bilirubin 0.7 mg/dL (0.3-1.0) 12/09/17 00:40 AST 25 U/L (13-39) 12/09/17 00:40 ALT 13 U/L (7-52) 12/09/17 00:40 Alkaline Phosphatase 88 U/L (34-104) 12/09/17 00:40 Total Protein 6.8 gm/dL (6.0-8.3) 12/09/17 00:40 Albumin 3.7 gm/dL (3.7-5.3) 12/09/17 00:40 Globulin 3.1 gm/dL 12/09/17 00:40 Albumin/Globulin Ratio 1.2 (1.0-1.8) 12/09/17 00:40 Triglycerides 87 mg/dL (<150) 12/09/17 00:40 Cholesterol 137 mg/dL (<200) 12/09/17 00:40 LDL Cholesterol Direct 63 mg/dL (75-193) L 12/09/17 00:40 HDL Cholesterol 56 mg/dL (23-92) 12/09/17 00:40 TSH 0.34 uIU/ml (0.34-5.60) 12/09/17 00:40 Urine Source CLEAN C 12/08/17 23:40 Urine Color YELLOW 12/08/17 23:40 Urine Clarity CLEAR (CLEAR) 12/08/17 23:40 Urine pH 6.0 (4.6 - 8.0) 12/08/17 23:40 Ur Specific [place] 1.010 (1.005-1.030) 12/08/17 23:40 Urine Protein NEGATIVE mg/dL (NEGATIVE) 12/08/17 23:40 Urine Glucose (UA) NEGATIVE mg/dL (NEGATIVE) 12/08/17 23:40 Urine Ketones NEGATIVE mg/dL (NEGATIVE) 12/08/17 23:40 Urine Blood NEGATIVE (NEGATIVE) 12/08/17 23:40 Urine Nitrate POSITIVE (NEGATIVE) H 12/08/17 23:40 Urine Bilirubin NEGATIVE (NEGATIVE) 12/08/17 23:40 Urine Urobilinogen 0.2 E.U./dL (0.2 - 1.0) 12/08/17 23:40 Ur Leukocyte Esterase NEGATIVE (NEGATIVE) 12/08/17 23:40 Urine RBC 0-2 /hpf (0-5) 12/08/17 23:40 Urine WBC 0-2 /hpf (0-5) 12/08/17 23:40 Ur Epithelial Cells FEW /lpf (FEW) 12/08/17 23:40 Urine Bacteria MODERATE /hpf (NONE SEEN) H 12/08/17 23:40 Salicylates < 25.0 mg/L (30.0-100.0) L 12/09/17 00:40 Urine Opiates Screen NEGATIVE (NEGATIVE) 12/08/17 23:40 Urine Methadone Screen NEGATIVE (NEGATIVE) 12/08/17 23:40 Acetaminophen < 10.0 ug/mL (10.0-30.0) L 12/09/17 00:40 Ur Barbiturates Screen NEGATIVE (NEGATIVE) 12/08/17 23:40 Ur Tricyclics Screen NEGATIVE (NEGATIVE) 12/08/17 23:40 Ur Phencyclidine Scrn NEGATIVE (NEGATIVE) 12/08/17 23:40 Amphetamines Screen NEGATIVE (NEGATIVE) 12/08/17 23:40 U Methamphetamines Scrn NEGATIVE (NEGATIVE) 12/08/17 23:40 U Benzodiazepines Scrn POSITIVE (NEGATIVE) H 12/08/17 23:40 U Cocaine Metab Screen NEGATIVE (NEGATIVE) 12/08/17 23:40 U Cannabinoids Screen NEGATIVE (NEGATIVE) 12/08/17 23:40 Ethyl Alcohol < 10 mg/dL (0-10) 12/09/17 00:40 RPR NONREACTIVE (NONREACTIVE) 12/09/17 00:40 - Physical Exam Vitals and I&O: Vital Signs Temp 97.3 F 12/14/17 06:32 Pulse 63 12/14/17 08:38 Resp 18 12/14/17 06:32 BP 139/84 12/14/17 08:37 Pulse Ox 97 12/14/17 06:32 Intake & Output 12/13/17 12/14/17 12/14/17 18:59 06:59 18:59 Intake Total 1200 240 Balance 1200 240 Intake: Oral 1200 120 Other 120 Other: # Voids 3 2 # Bowel Movements 1 Active Medications: Current Medications Acetaminophen/Hydrocodone Bitart ([place] 5mg/325mg) 1 tab PO TID PRN PRN Reason: Pain (Moderate) Stop: 02/12/18 13:08 Last Admin: 12/14/17 14:07 Dose: 1 tab Aspirin (Ecotrin) 81 mg PO DAILY [facility] Stop: 02/07/18 08:59 Last Admin: 12/14/17 08:36 Dose: 81 mg Baclofen (Lioresal) 10 mg PO BID [facility] Stop: 02/07/18 08:59 Last Admin: 12/14/17 08:36 Dose: 10 mg Cholecalciferol (Vitamin D3) 2,000 iu PO DAILY [facility] Stop: 02/07/18 08:59 Last Admin: 12/14/17 08:36 Dose: 2,000 iu Diclofenac Sodium (Voltaren) 25 mg PO HS [facility] Stop: 02/08/18 20:59 Last Admin: 12/13/17 20:29 Dose: 25 mg Diltiazem HCl (Cardizem) 30 mg PO DAILY [facility] Stop: 02/07/18 08:59 Last Admin: 12/14/17 08:35 Dose: 30 mg Docusate Sodium (Colace) 250 mg PO DAILY [facility] Stop: 02/07/18 08:59 Last Admin: 12/14/17 08:35 Dose: 250 mg Duloxetine HCl (Cymbalta) 60 mg PO DAILY [facility] Stop: 02/07/18 08:59 Last Admin: 12/14/17 08:34 Dose: 60 mg Famotidine (Pepcid) 20 mg PO BID [facility] Stop: 02/07/18 08:59 Last Admin: 12/14/17 08:35 Dose: 20 mg Gabapentin (Neurontin) 600 mg PO TID [facility] Stop: 02/07/18 08:59 Last Admin: 12/14/17 14:06 Dose: 600 mg Lamotrigine (Lamictal) 100 mg PO DAILY [facility] PRN Reason: Protocol Stop: 02/07/18 08:59 Last Admin: 12/14/17 08:36 Dose: 100 mg Lorazepam (Ativan) 1 mg PO Q6HR PRN; Protocol PRN Reason: Anxiety Stop: 02/07/18 03:14 Last Admin: 12/14/17 08:37 Dose: 1 mg Memantine (Namenda) 10 mg PO DAILY [facility] Stop: 02/07/18 08:59 Last Admin: 12/14/17 08:36 Dose: 10 mg Metformin HCl (Glucophage) 1,000 mg PO BIDWM [facility] Stop: 02/07/18 07:59 Last Admin: 12/14/17 08:36 Dose: 1,000 mg Nitroglycerin (Nitrostat) 0.4 mg SL Q5MIN PRN PRN Reason: Chest Pain Stop: 02/07/18 03:14 Oxybutynin Chloride (Ditropan) 5 mg PO BID [facility] Stop: 02/07/18 08:59 Last Admin: 12/14/17 08:37 Dose: 5 mg Pyridostigmine [place] (Mestinon) 60 mg PO BID [facility] Stop: 02/07/18 08:59 Last Admin: 12/14/17 08:35 Dose: 60 mg Quetiapine Fumarate (Seroquel) 25 mg PO BID [facility] PRN Reason: Protocol Stop: 02/11/18 16:59 Last Admin: 12/14/17 08:36 Dose: 25 mg Trazodone HCl (Desyrel) 50 mg PO HS [facility] PRN Reason: Protocol Stop: 02/07/18 20:59 Last Admin: 12/13/17 20:29 Dose: 50 mg Valsartan (Diovan) 160 mg PO BID [facility] Stop: 02/07/18 08:59 Last Admin: 12/14/17 08:37 Dose: 160 mg Assessment/Plan - Assessment Assessment: psychosis anemia dm - Plan Plan: cpm
--- NOTE | 2017-12-14 22:05 | Progress Notes ---
DATE: 12/14/2017 SUBJECTIVE: Chart reviewed and the patient interviewed. Also discussed the patient's condition with the staff and reviewed records and labs. The patient is anxious and she is still in a depressed mood. The patient also still needs lots of redirections. She also is still unable to provide any safe plan for self-care. She is still feeling hopeless and helpless. She is also asking for increase in her pain and medications. Otherwise, the patient is compliant with taking her medications and Cymbalta is given now in a dose of 60 mg every day as well as Seroquel that was increased to 25 mg twice a day and Namenda 10 mg at bedtime. ASSESSMENT: The patient is still depressed and needs close monitoring. TREATMENT PLAN: Continue to monitor her behavior and her condition closely. Also, continue adjusting psychotropic medications and follow up closely. JOB# [id number]
[2017-12-15] MEDS: Hydrocodone/APAP 5mg/325mg Tab PO PRN ×3 (05:51→22:05)
[2017-12-15] MEDS: Diltiazem 30 mg Tab PO SCH (09:29)
--- NOTE | 2017-12-15 09:45 | General Progress Note ---
Subjective - Review of Systems Events since last encounter: patient depressed withdrawn in no distress Objective - Results Result Diagrams: 12/09/17 00:29 12/09/17 00:40 Recent Labs: Laboratory Last Values WBC 4.6 Th/cmm (4.8-10.8) L 12/09/17 00:29 RBC 5.00 Mil/cmm (3.80-5.20) 12/09/17 00:29 Hgb 12.1 gm/dL (12-16) 12/09/17 00:29 Hct 37.6 % (41.0-60) L 12/09/17 00:29 MCV 75.2 fl (81-100) L 12/09/17 00:29 MCH 24.2 pg (27.0-31.0) L 12/09/17:29 MCHC Differential 32.2 pg (28.0-36.0) 12/09/17 00: RDW 15.8 % (11.5-20.0) 12/09/17 00: Plt Count 244 Th/cmm (150-400) 12/09/17 00:29 MPV 8.2 fl 12/09/17 00:29 Neutrophils % 44.6 % (40.0-80.0) 12/09/17 00: Lymphocytes % 46.1 % (20.0-50.0) 12/09/17: Monocytes % 2.9 % (2.0-10.0) 12/09/17 00: Eosinophils % 3.1 % (0.0-5.0) 12/09/17 00: Basophils % 3.3 % (0.0-2.0) H 12/09/17 00:29 Sodium 137 mEq/L (136-145) 12/09/17 00:40 Potassium 3.5 mEq/L (3.5-5.1) 12/09/17 00:40 Chloride 99 mEq/L (98-107) 12/09/17 00:40 Carbon Dioxide 28.6 mEq/L (21.0-31.0) 12/09/17 00:40 Anion Gap 12.9 (7.0-16.0) 12/09/17 00:40 BUN 20 mg/dL (7-25) 12/09/17 00:40 Creatinine 1.1 mg/dL (0.6-1.2) 12/09/17 00:40 Est GFR ( Amer) > 60.0 ml/min (>90) 12/09/17 00:40 Est GFR (Non-Af Amer) 52.8 ml/min 12/09/17 00:40 BUN/Creatinine Ratio 18.2 12/09/17 00:40 Glucose 122 mg/dL (70-105) H 12/09/17 00:40 POC Glucose 127 MG/DL (70 - 105) H 12/10/17 06:33 Hemoglobin A1c % 7.0 % (4.0-6.0) H 12/09/17 00:40 Calcium 9.5 mg/dL (8.6-10.3) 12/09/17 00:40 Total Bilirubin 0.7 mg/dL (0.3-1.0) 12/09/17 00:40 AST 25 U/L (13-39) 12/09/17 00:40 ALT 13 U/L (7-52) 12/09/17 00:40 Alkaline Phosphatase 88 U/L (34-104) 12/09/17 00:40 Total Protein 6.8 gm/dL (6.0-8.3) 12/09/17 00:40 Albumin 3.7 gm/dL (3.7-5.3) 12/09/17 00:40 Globulin 3.1 gm/dL 12/09/17 00:40 Albumin/Globulin Ratio 1.2 (1.0-1.8) 12/09/17 00:40 Triglycerides 87 mg/dL (<150) 12/09/17 00:40 Cholesterol 137 mg/dL (<200) 12/09/17 00:40 LDL Cholesterol Direct 63 mg/dL (75-193) L 12/09/17 00:40 HDL Cholesterol 56 mg/dL (23-92) 12/09/17 00:40 TSH 0.34 uIU/ml (0.34-5.60) 12/09/17 00:40 Urine Source CLEAN C 12/08/17 23:40 Urine Color YELLOW 12/08/17 23:40 Urine Clarity CLEAR (CLEAR) 12/08/17 23:40 Urine pH 6.0 (4.6 - 8.0) 12/08/17 23:40 Ur Specific [place] 1.010 (1.005-1.030) 12/08/17 23:40 Urine Protein NEGATIVE mg/dL (NEGATIVE) 12/08/17 23:40 Urine Glucose (UA) NEGATIVE mg/dL (NEGATIVE) 12/08/17 23:40 Urine Ketones NEGATIVE mg/dL (NEGATIVE) 12/08/17 23:40 Urine Blood NEGATIVE (NEGATIVE) 12/08/17 23:40 Urine Nitrate POSITIVE (NEGATIVE) H 12/08/17 23:40 Urine Bilirubin NEGATIVE (NEGATIVE) 12/08/17 23:40 Urine Urobilinogen 0.2 E.U./dL (0.2 - 1.0) 12/08/17 23:40 Ur Leukocyte Esterase NEGATIVE (NEGATIVE) 12/08/17 23:40 Urine RBC 0-2 /hpf (0-5) 12/08/17 23:40 Urine WBC 0-2 /hpf (0-5) 12/08/17 23:40 Ur Epithelial Cells FEW /lpf (FEW) 12/08/17 23:40 Urine Bacteria MODERATE /hpf (NONE SEEN) H 12/08/17 23:40 Salicylates < 25.0 mg/L (30.0-100.0) L 12/09/17 00:40 Urine Opiates Screen NEGATIVE (NEGATIVE) 12/08/17 23:40 Urine Methadone Screen NEGATIVE (NEGATIVE) 12/08/17 23:40 Acetaminophen < 10.0 ug/mL (10.0-30.0) L 12/09/17 00:40 Ur Barbiturates Screen NEGATIVE (NEGATIVE) 12/08/17 23:40 Ur Tricyclics Screen NEGATIVE (NEGATIVE) 12/08/17 23:40 Ur Phencyclidine Scrn NEGATIVE (NEGATIVE) 12/08/17 23:40 Amphetamines Screen NEGATIVE (NEGATIVE) 12/08/17 23:40 U Methamphetamines Scrn NEGATIVE (NEGATIVE) 12/08/17 23:40 U Benzodiazepines Scrn POSITIVE (NEGATIVE) H 12/08/17 23:40 U Cocaine Metab Screen NEGATIVE (NEGATIVE) 12/08/17 23:40 U Cannabinoids Screen NEGATIVE (NEGATIVE) 12/08/17 23:40 Ethyl Alcohol < 10 mg/dL (0-10) 12/09/17 00:40 RPR NONREACTIVE (NONREACTIVE) 12/09/17 00:40 - Physical Exam Vitals and I&O: Vital Signs Temp 97 F 12/15/17 07:00 Pulse 60 12/15/17 09:29 Resp 19 12/15/17 07:00 BP 144/85 12/15/17 09:13 Pulse Ox 98 12/15/17 07:00 Intake & Output 12/14/17 12/15/17 12/15/17 18:59 06:59 18:59 Intake Total 1500 120 Balance 1500 120 Intake: Oral 1500 120 Other: # Voids 3 2 # Bowel Movements 1 Active Medications: Current Medications Acetaminophen/Hydrocodone Bitart ([place] 5mg/325mg) 1 tab PO TID PRN PRN Reason: Pain (Moderate) Stop: 02/12/18 13:08 Last Admin: 12/15/17 09:14 Dose: 1 tab Aspirin (Ecotrin) 81 mg PO DAILY [facility] Stop: 02/07/18 08:59 Last Admin: 12/15/17 09:15 Dose: 81 mg Baclofen (Lioresal) 10 mg PO BID [facility] Stop: 02/07/18 08:59 Last Admin: 12/15/17 09:15 Dose: 10 mg Cholecalciferol (Vitamin D3) 2,000 iu PO DAILY [facility] Stop: 02/07/18 08:59 Last Admin: 12/15/17 09:15 Dose: 2,000 iu Diclofenac Sodium (Voltaren) 25 mg PO HS [facility] Stop: 02/08/18 20:59 Last Admin: 12/14/17 21:07 Dose: 25 mg Diltiazem HCl (Cardizem) 30 mg PO DAILY [facility] Stop: 02/07/18 08:59 Last Admin: 12/15/17 09:29 Dose: Not Given Docusate Sodium (Colace) 250 mg PO DAILY [facility] Stop: 02/07/18 08:59 Last Admin: 12/15/17 09:15 Dose: 250 mg Duloxetine HCl (Cymbalta) 60 mg PO DAILY [facility] Stop: 02/07/18 08:59 Last Admin: 12/15/17 09:29 Dose: 60 mg Famotidine (Pepcid) 20 mg PO BID [facility] Stop: 02/07/18 08:59 Last Admin: 12/15/17 09:14 Dose: 20 mg Gabapentin (Neurontin) 600 mg PO TID [facility] Stop: 02/07/18 08:59 Last Admin: 12/15/17 09:13 Dose: 600 mg Lamotrigine (Lamictal) 100 mg PO DAILY [facility] PRN Reason: Protocol Stop: 02/07/18 08:59 Last Admin: 12/15/17 09:15 Dose: 100 mg Lorazepam (Ativan) 1 mg PO Q6HR PRN; Protocol PRN Reason: Anxiety Stop: 02/07/18 03:14 Last Admin: 12/14/17 08:37 Dose: 1 mg Memantine (Namenda) 10 mg PO DAILY [facility] Stop: 02/07/18 08:59 Last Admin: 12/15/17 09:15 Dose: 10 mg Metformin HCl (Glucophage) 1,000 mg PO BIDWM [facility] Stop: 02/07/18 07:59 Last Admin: 12/15/17 09:28 Dose: 1,000 mg Nitroglycerin (Nitrostat) 0.4 mg SL Q5MIN PRN PRN Reason: Chest Pain Stop: 02/07/18 03:14 Oxybutynin Chloride (Ditropan) 5 mg PO BID [facility] Stop: 02/07/18 08:59 Last Admin: 12/15/17 09:15 Dose: 5 mg Pyridostigmine Newcomb (Mestinon) 60 mg PO BID [facility] Stop: 02/07/18 08:59 Last Admin: 12/15/17 09:29 Dose: 60 mg Quetiapine Fumarate (Seroquel) 25 mg PO BID [facility] PRN Reason: Protocol Stop: 02/11/18 16:59 Last Admin: 12/15/17 09:15 Dose: 25 mg Trazodone HCl (Desyrel) 50 mg PO HS [facility] PRN Reason: Protocol Stop: 02/07/18 20:59 Last Admin: 12/14/17 21:07 Dose: 50 mg Valsartan (Diovan) 160 mg PO BID [facility] Stop: 02/07/18 08:59 Last Admin: 12/15/17 09:13 Dose: 160 mg Assessment/Plan - Assessment Assessment: psychosis anemia dm - Plan Plan: cpm Nutritional Asmnt/Malnutr-PDOC - Dietary Evaluation Malnutrition Findings (Please click <Entered> for more info): Nutritional Asmnt/Malnutrition Start: 12/14/17 17: 19 Text: Status: Complete Freq: Document 12/14/17 17:[address] [facility] (Rec: 12/14/17 17:[address] [facility] [id number]) Nutritional Asmnt/Malnutrition Patient General Information Nutritional Screening Moderate Risk Diagnosis psychosis nos Pertinent Medical Hx/Surgical Hx COPD, heart disease, s/o pacemaker, fiberomyaliga, bipolar Subjective Information Per EMR, PO intake 75-100%. Current Diet Order/ Nutrition Support Cardiac, CCHO-60gm. Pertinent Medications vit D3, colace, glucophage, seroquel Pertinent Labs 12/09 glucose 122, a1c 7.0 12/09-12/10 POC 109-127 Nutritional Hx/Data Height 1.65 m Height (Calculated Centimeters) 165.1 Current Weight (lbs) 72.575 kg Weight (Calculated Kilograms) 72.6 Weight (Calculated Grams) 55227.8 Kemp Body Weight 125 Body Mass Index (BMI) 26.6 Weight Status Overweight GI Symptoms GI Symptoms None Last BM 12/13 Difficult in: None Skin Integrity/Comment: intact Current %PO Good (75-100%) Estimated Nutritional Goals BEE in Kcals: Adj wt of IBW Calories/Kcals/Kg 25-30 Kcals Calculated 3943-6737 Protein: Adj wt of IBW Protein g/k-1.2 Protein Calculated 61-73 Fluid: ml 1525-1830ml (1ml/kcal) Nutritional Problem 1. Problem Problem altered nutrition related labs Etiology endocrine dysfunction Signs/Symptoms: glucose 122, a1c 7.0, POC 109- 127 Malnutrition Alert Protein-Calorie Malnutrition N/A Is there a minimum of two criteria No selected? Query Text:Check all the applicable criteria. A minimum of two criteria are recommended for diagnosis of either severe or non-severe malnutrition. Intervention/Recommendation Comments 1. Continue with cardiac, CCHO -60gm diet as ordered. 2. Monitor PO intake, wt, labs and skin integrity 3. F/U as lowr risk in 7 days, 12/21 Expected Outcomes/Goals Expected Outcomes/Goals 1. PO intake to meet at least 75% of nutritional needs. 2. Wt stability, skin to remain intact, labs to approach WNL.
--- NOTE | 2017-12-15 10:28 | Psychosocial Evaluation ---
DATE OF SERVICE: PSYCHIATRIC INITIAL EVALUATION AND MENTAL STATUS EXAM PATIENT'S AGE: 67 SEX: Female. PHYSICIAN: Diana Us MD, MPH. CHIEF COMPLAINT: Agitation. HISTORY OF PRESENT ILLNESS: The patient was admitted to the hospital because of increased agitation and irritability. The patient has been agitated and aggressive the day before her admission. She also has been nervous and tense. She also seems to be responding to stimuli. PAST PSYCHIATRIC HISTORY: The patient seems to have history of depression and also psychosis with agitation. PAST MEDICAL HISTORY: The patient has no major medical issues. MENTAL STATUS EXAMINATION: The patient is calm and cooperative at this time. Depressed mood. Thought processes are mainly goal directed. The patient denies auditory or visual hallucinations or delusions. The patient currently denies any thoughts of suicide or homicide. The patient is alert and oriented to time, place, person, and situation. Intact immediate, recent and remote memories. Fair insight. Judgment is questionable. She seems to be of average intelligence based on her verbal ability. ASSESSMENT: PRIMARY DIAGNOSES: Schizoaffective disorder, bipolar type, with psychotic features, severe. TREATMENT PLAN: We will continue monitoring her behavior and her condition closely. Also, adjusting psychotropic medications and working on her ineffective coping. ESTIMATED LENGTH OF STAY: 1-2 weeks. PATIENT's STRENGTHS AND WEAKNESSES: The patient's strength is not clear at this time. Weakness is ineffective coping and poor impulse control. AFTER DISCHARGE PLAN: Outpatient treatment and followup. We will continue as an outpatient. CRITERIA FOR DISCHARGE: The patient will not be psychotic and agitated and will have better impulse control. [facility]# [id number]
--- NOTE | 2017-12-16 01:42 | Progress Notes ---
DATE: Chart reviewed and the patient interviewed. Also discussed the patient's condition with the staff and reviewed records and labs. The patient still needs lots of redirections and she is still in a depressed mood. The patient also is still focused on her discharge without having any safe plan for her self-care. The patient also is still paranoid. She still has difficulty expressing herself or her feelings. Otherwise, the patient is compliant with taking her medications with no side effect of Cymbalta, Seroquel or Namenda. ASSESSMENT: The patient is still agitated and confused. TREATMENT PLAN: We will continue monitoring her behavior and her condition. Also, continue to work on her poor impulse control and her irritability and we will continue to follow up. [facility]# [id number]
[2017-12-16] MEDS: Hydrocodone/APAP 5mg/325mg Tab PO PRN ×2 (06:06→14:34)
[2017-12-16] MEDS: Diltiazem 30 mg Tab PO SCH (08:58)
[2017-12-17] MEDS: Hydrocodone/APAP 5mg/325mg Tab PO PRN ×3 (06:12→21:06)
[2017-12-17] MEDS: Diltiazem 30 mg Tab PO SCH (08:46)
--- NOTE | 2017-12-17 23:05 | Progress Notes ---
DATE: 12/17/2017 SUBJECTIVE: The patient is here due to aggressive behaviors, verbally abusive, agitated, psychotic, history of bipolar. On [id number], the patient states that she was transferred from another hospital. She states the year is 2018, the month is March. She has no idea why she is in the hospital. Dr. Us has been seeing the patient over the past few days. Noting she remains depressed, withdrawn, focused on discharge, paranoid, periods of confusion, and agitation. She is calm at this time. MEDICATIONS: Noted. ASSESSMENT: The patient remains symptomatic, still confused, concerns for ability to care for herself and function, what appears to be ongoing psychotic symptoms. PLAN: We will continue to monitor and titrate and adjust medications as tolerated. The patient is not safe for a lower level of care. JOB# [id number]
--- NOTE | 2017-12-18 01:40 | Progress Notes ---
DATE: 12/17/2017 SUBJECTIVE: The patient was seen in the dining area with other patients. The patient appears to be calm, but withdrawn, otherwise the patient is in no acute distress. OBJECTIVE: VITAL SIGNS: Temperature 97.6, heart rate of 69, blood pressure 154/63, respirations 20, and 97% on room air. HEENT: Head is atraumatic and normocephalic. Eyes: Bilateral conjunctivae are clear. Bilateral pupils are equally round and reactive. NECK: Supple. No JVD. CARDIOVASCULAR: S1 and S2, without murmur. PULMONARY: Clear to auscultation. GASTROINTESTINAL: Soft and nontender without guarding. Positive bowel sounds. MUSCULOSKELETAL: No clubbing. No cyanosis noted. ASSESSMENT: 1. Bipolar disorder. 2. Dementia. 3. Hypertension. 4. Vitamin D deficiency. 5. Osteoarthritis. 6. Neuropathy. 7. Gastroesophageal reflux disease. PLAN: We will keep the patient inpatient psychiatric unit. We are also going to start the patient on amlodipine 5 mg everyday due to uncontrolled blood pressure. We will also going to continue Catapres with the scheduled and Catapres as needed. Treatment plans were discussed with the patient's nurse. Treatment plans were discussed with Dr. Joseph. JOB# [id number]
[2017-12-18] MEDS: Hydrocodone/APAP 5mg/325mg Tab PO PRN ×2 (03:34→22:14)
--- NOTE | 2017-12-18 08:42 | General Progress Note ---
Subjective - Review of Systems Events since last encounter: patient awake., alert seens depressed , withdrawn Objective - Results Result Diagrams: 12/09/17 00:29 12/09/17 00:40 Recent Labs: Laboratory Last Values WBC 4.6 Th/cmm (4.8-10.8) L 12/09/17 00:29 RBC 5.00 Mil/cmm (3.80-5.20) 12/09/17 00:29 Hgb 12.1 gm/dL (12-16) 12/09/17 00:29 Hct 37.6 % (41.0-60) L 12/09/17 00:29 MCV 75.2 fl (81-100) L 12/09/17 00:29 MCH 24.2 pg (27.0-31.0) L 12/09/17 00:29 MCHC Differential 32.2 pg (28.0-36.0) 12/09/17 00: RDW 15.8 % (11.5-20.0) 12/09/17 00: Plt Count 244 Th/cmm (150-400) 12/09/17 00:29 MPV 8.2 fl 12/09/17 00:29 Neutrophils % 44.6 % (40.0-80.0) 12/09/17 00: Lymphocytes % 46.1 % (20.0-50.0) 12/09/17 00: Monocytes % 2.9 % (2.0-10.0) 12/09/17 00: Eosinophils % 3.1 % (0.0-5.0) 12/09/17: Basophils % 3.3 % (0.0-2.0) H 12/09/17 00:29 Sodium 137 mEq/L (136-145) 12/09/17 00:40 Potassium 3.5 mEq/L (3.5-5.1) 12/09/17 00:40 Chloride 99 mEq/L (98-107) 12/09/17 00:40 Carbon Dioxide 28.6 mEq/L (21.0-31.0) 12/09/17 00:40 Anion Gap 12.9 (7.0-16.0) 12/09/17 00:40 BUN 20 mg/dL (7-25) 12/09/17 00:40 Creatinine 1.1 mg/dL (0.6-1.2) 12/09/17 00:40 Est GFR ( Amer) > 60.0 ml/min (>90) 12/09/17 00:40 Est GFR (Non-Af Amer) 52.8 ml/min 12/09/17 00:40 BUN/Creatinine Ratio 18.2 12/09/17 00:40 Glucose 122 mg/dL (70-105) H 12/09/17 00:40 POC Glucose 127 MG/DL (70 - 105) H 12/10/17 06:33 Hemoglobin A1c % 7.0 % (4.0-6.0) H 12/09/17 00:40 Calcium 9.5 mg/dL (8.6-10.3) 12/09/17 00:40 Total Bilirubin 0.7 mg/dL (0.3-1.0) 12/09/17 00:40 AST 25 U/L (13-39) 12/09/17 00:40 ALT 13 U/L (7-52) 12/09/17 00:40 Alkaline Phosphatase 88 U/L (34-104) 12/09/17 00:40 Total Protein 6.8 gm/dL (6.0-8.3) 12/09/17 00:40 Albumin 3.7 gm/dL (3.7-5.3) 12/09/17 00:40 Globulin 3.1 gm/dL 12/09/17 00:40 Albumin/Globulin Ratio 1.2 (1.0-1.8) 12/09/17 00:40 Triglycerides 87 mg/dL (<150) 12/09/17 00:40 Cholesterol 137 mg/dL (<200) 12/09/17 00:40 LDL Cholesterol Direct 63 mg/dL (75-193) L 12/09/17 00:40 HDL Cholesterol 56 mg/dL (23-92) 12/09/17 00:40 TSH 0.34 uIU/ml (0.34-5.60) 12/09/17 00:40 Urine Source CLEAN C 12/08/17 23:40 Urine Color YELLOW 12/08/17 23:40 Urine Clarity CLEAR (CLEAR) 12/08/17 23:40 Urine pH 6.0 (4.6 - 8.0) 12/08/17 23:40 Ur Specific [place] 1.010 (1.005-1.030) 12/08/17 23:40 Urine Protein NEGATIVE mg/dL (NEGATIVE) 12/08/17 23:40 Urine Glucose (UA) NEGATIVE mg/dL (NEGATIVE) 12/08/17 23:40 Urine Ketones NEGATIVE mg/dL (NEGATIVE) 12/08/17 23:40 Urine Blood NEGATIVE (NEGATIVE) 12/08/17 23:40 Urine Nitrate POSITIVE (NEGATIVE) H 12/08/17 23:40 Urine Bilirubin NEGATIVE (NEGATIVE) 12/08/17 23:40 Urine Urobilinogen 0.2 E.U./dL (0.2 - 1.0) 12/08/17 23:40 Ur Leukocyte Esterase NEGATIVE (NEGATIVE) 12/08/17 23:40 Urine RBC 0-2 /hpf (0-5) 12/08/17 23:40 Urine WBC 0-2 /hpf (0-5) 12/08/17 23:40 Ur Epithelial Cells FEW /lpf (FEW) 12/08/17 23:40 Urine Bacteria MODERATE /hpf (NONE SEEN) H 12/08/17 23:40 Salicylates < 25.0 mg/L (30.0-100.0) L 12/09/17 00:40 Urine Opiates Screen NEGATIVE (NEGATIVE) 12/08/17 23:40 Urine Methadone Screen NEGATIVE (NEGATIVE) 12/08/17 23:40 Acetaminophen < 10.0 ug/mL (10.0-30.0) L 12/09/17 00:40 Ur Barbiturates Screen NEGATIVE (NEGATIVE) 12/08/17 23:40 Ur Tricyclics Screen NEGATIVE (NEGATIVE) 12/08/17 23:40 Ur Phencyclidine Scrn NEGATIVE (NEGATIVE) 12/08/17 23:40 Amphetamines Screen NEGATIVE (NEGATIVE) 12/08/17 23:40 U Methamphetamines Scrn NEGATIVE (NEGATIVE) 12/08/17 23:40 U Benzodiazepines Scrn POSITIVE (NEGATIVE) H 12/08/17 23:40 U Cocaine Metab Screen NEGATIVE (NEGATIVE) 12/08/17 23:40 U Cannabinoids Screen NEGATIVE (NEGATIVE) 12/08/17 23:40 Ethyl Alcohol < 10 mg/dL (0-10) 12/09/17 00:40 RPR NONREACTIVE (NONREACTIVE) 12/09/17 00:40 - Physical Exam Vitals and I&O: Vital Signs Temp 97.5 F 12/18/17 06:44 Pulse 65 12/18/17 06:44 Resp 20 12/18/17 06:44 BP 172/100 12/18/17 06:44 Pulse Ox 96 12/18/17 06:44 Intake & Output 12/17/17 12/18/17 12/18/17 18:59 06:59 18:59 Intake Total 1100 120 Balance 1100 120 Intake: Oral 1100 120 Other: # Voids 3 3 # Bowel Movements 0 Active Medications: Current Medications Acetaminophen/Hydrocodone Bitart ([place] 5mg/325mg) 1 tab PO TID PRN PRN Reason: Pain (Moderate) Stop: 02/12/18 13:08 Last Admin: 12/18/17 03:34 Dose: 1 tab Amlodipine Besylate (Norvasc) 5 mg PO DAILY [facility] Stop: 02/16/18 08:59 Aspirin (Ecotrin) 81 mg PO DAILY [facility] Stop: 02/07/18 08:59 Last Admin: 12/17/17 08:57 Dose: 81 mg Baclofen (Lioresal) 10 mg PO BID [facility] Stop: 02/07/18 08:59 Last Admin: 12/17/17 17:13 Dose: 10 mg Cholecalciferol (Vitamin D3) 2,000 iu PO DAILY [facility] Stop: 02/07/18 08:59 Last Admin: 12/17/17 08:47 Dose: 2,000 iu Diclofenac Sodium (Voltaren) 25 mg PO HS [facility] Stop: 02/08/18 20:59 Last Admin: 12/17/17 21:00 Dose: 25 mg Diltiazem HCl (Cardizem) 30 mg PO DAILY [facility] Stop: 02/07/18 08:59 Last Admin: 12/17/17 08:46 Dose: 30 mg Docusate Sodium (Colace) 250 mg PO DAILY [facility] Stop: 02/07/18 08:59 Last Admin: 12/17/17 08:47 Dose: 250 mg Duloxetine HCl (Cymbalta) 60 mg PO DAILY [facility] Stop: 02/07/18 08:59 Last Admin: 12/17/17 08:49 Dose: 60 mg Famotidine (Pepcid) 20 mg PO BID [facility] Stop: 02/07/18 08:59 Last Admin: 12/17/17 17:06 Dose: 20 mg Gabapentin (Neurontin) 600 mg PO TID [facility] Stop: 02/07/18 08:59 Last Admin: 12/17/17 21:06 Dose: 600 mg Lamotrigine (Lamictal) 100 mg PO DAILY [facility] PRN Reason: Protocol Stop: 02/07/18 08:59 Last Admin: 12/17/17 08:58 Dose: 100 mg Lorazepam (Ativan) 1 mg PO Q6HR PRN; Protocol PRN Reason: Anxiety Stop: 02/07/18 03:14 Last Admin: 12/18/17 05:18 Dose: 1 mg Memantine (Namenda) 10 mg PO DAILY [facility] Stop: 02/07/18 08:59 Last Admin: 12/17/17 08:50 Dose: 10 mg Metformin HCl (Glucophage) 1,000 mg PO BIDWM [facility] Stop: 02/07/18 07:59 Last Admin: 12/17/17 08:51 Dose: 1,000 mg Nitroglycerin (Nitrostat) 0.4 mg SL Q5MIN PRN PRN Reason: Chest Pain Stop: 02/07/18 03:14 Oxybutynin Chloride (Ditropan) 5 mg PO BID [facility] Stop: 02/07/18 08:59 Last Admin: 12/17/17 17:12 Dose: 5 mg Pyridostigmine [place] (Mestinon) 60 mg PO BID [facility] Stop: 02/07/18 08:59 Last Admin: 12/17/17 17:20 Dose: 60 mg Quetiapine Fumarate (Seroquel) 37.5 mg PO BID [facility] PRN Reason: Protocol Stop: 02/14/18 06:39 Last Admin: 12/17/17 17:08 Dose: 37.5 mg Trazodone HCl (Desyrel) 50 mg PO HS [facility] PRN Reason: Protocol Stop: 02/07/18 20:59 Last Admin: 12/17/17 21:05 Dose: 50 mg Valsartan (Diovan) 160 mg PO BID [facility] Stop: 02/07/18 08:59 Last Admin: 12/17/17 17:10 Dose: 160 mg Assessment/Plan - Assessment Assessment: psychosis anemia dm - Plan Plan: cpm Nutritional Asmnt/Malnutr-PDOC - Dietary Evaluation Malnutrition Findings (Please click <Entered> for more info): Nutritional Asmnt/Malnutrition Start: 12/14/17 17: 19 Text: Status: Complete Freq: Document 12/14/17 17:19 RINKU (Rec: 12/14/17 17:26 [email or web address]) Nutritional Asmnt/Malnutrition Patient General Information Nutritional Screening Moderate Risk Diagnosis psychosis nos Pertinent Medical Hx/Surgical Hx COPD, heart disease, s/o pacemaker, fiberomyaliga, bipolar Subjective Information Per EMR, PO intake 75-100%. Current Diet Order/ Nutrition Support Cardiac, CCHO-60gm. Pertinent Medications vit D3, colace, glucophage, seroquel Pertinent Labs 12/09 glucose 122, a1c 7.0 12/09-12/10 POC 109-127 Nutritional Hx/Data Height 1.65 m Height (Calculated Centimeters) 165.1 Current Weight (lbs) 72.575 kg Weight (Calculated Kilograms) 72.6 Weight (Calculated Grams) 31341.8 Quentin Body Weight 125 Body Mass Index (BMI) 26.6 Weight Status Overweight GI Symptoms GI Symptoms None Last BM 12/13 Difficult in: None Skin Integrity/Comment: intact Current %PO Good (75-100%) Estimated Nutritional Goals BEE in Kcals: Adj wt of IBW Calories/Kcals/Kg 25-30 Kcals Calculated 0014-4610 Protein: Adj wt of IBW Protein g/k-1.2 Protein Calculated 61-73 Fluid: ml 1525-1830ml (1ml/kcal) Nutritional Problem 1. Problem Problem altered nutrition related labs Etiology endocrine dysfunction Signs/Symptoms: glucose 122, a1c 7.0, POC 109- 127 Malnutrition Alert Protein-Calorie Malnutrition N/A Is there a minimum of two criteria No selected? Query Text:Check all the applicable criteria. A minimum of two criteria are recommended for diagnosis of either severe or non-severe malnutrition. Intervention/Recommendation Comments 1. Continue with cardiac, CCHO -60gm diet as ordered. 2. Monitor PO intake, wt, labs and skin integrity 3. F/U as lowr risk in 7 days, 12/21 Expected Outcomes/Goals Expected Outcomes/Goals 1. PO intake to meet at least 75% of nutritional needs. 2. Wt stability, skin to remain intact, labs to approach WNL.
[2017-12-18] MEDS: Diltiazem 30 mg Tab PO SCH (09:00)
--- NOTE | 2017-12-18 09:11 | Progress Notes ---
DATE: SUBJECTIVE: Chart reviewed and the patient interviewed. Also discussed the patient's condition with the staff and reviewed records and labs. The patient continued to be confused and have disorganized thoughts. The patient also is still paranoid and talking about hospital charges. The patient also is in angry mood and she is easily agitated. The patient is asking to go home and she has difficult time organizing her thoughts. ASSESSMENT: The patient is still psychotic and angry. TREATMENT PLAN: Continue to monitor her behavior and her condition. Also, continue Cymbalta, gabapentin, Namenda, and Seroquel same dose. Also, continue to work on her anger as well as ineffective coping and continue to follow up closely. [facility]# [id number]
--- NOTE | 2017-12-18 21:31 | Progress Notes ---
DATE: 12/18/2017 SUBJECTIVE: The patient is here for aggressive behaviors, verbally abusive, agitated. The patient transferred from another hospital, still confused. States __she__ believes the month is March. She is aware that she has nowhere to go. She remains withdrawn, still suspicious, confused, concerns for grave disability. ASSESSMENT: The patient anxious, sad, depressed, still confused. PLAN: Will continue to monitor. MEDICATIONS: Noted. Currently on low dose Seroquel twice daily. Will monitor and follow up. The patient unable to care for her basic needs at this time. JOB# [id number] PETRA
[2017-12-19] MEDS: Hydrocodone/APAP 5mg/325mg Tab PO PRN ×2 (06:58→13:53)
[2017-12-19] MEDS: Diltiazem 30 mg Tab PO SCH (09:13)
--- NOTE | 2017-12-19 14:12 | General Progress Note ---
Subjective - Review of Systems Events since last encounter: patient awake alert in no distress withdrawn Objective - Results Result Diagrams: 12/09/17 00:29 12/09/17 00:40 Recent Labs: Laboratory Last Values WBC 4.6 Th/cmm (4.8-10.8) L 12/09/17 00:29 RBC 5.00 Mil/cmm (3.80-5.20) 12/09/17 00:29 Hgb 12.1 gm/dL (12-16) 12/09/17 00:29 Hct 37.6 % (41.0-60) L 12/09/17 00:29 MCV 75.2 fl (81-100) L 12/09/17 00:29 MCH 24.2 pg (27.0-31.0) L 12/09/17 00:29 MCHC Differential 32.2 pg (28.0-36.0) 12/09/17 00:29 RDW 15.8 % (11.5-20.0) 12/09/17 00: Plt Count 244 Th/cmm (150-400) 12/09/17 00:29 MPV 8.2 fl 12/09/17 00:29 Neutrophils % 44.6 % (40.0-80.0) 12/09/17 00: Lymphocytes % 46.1 % (20.0-50.0) 12/09/17: Monocytes % 2.9 % (2.0-10.0) 12/09/17 00: Eosinophils % 3.1 % (0.0-5.0) 12/09/17 00: Basophils % 3.3 % (0.0-2.0) H 12/09/17 00:29 Sodium 137 mEq/L (136-145) 12/09/17 00:40 Potassium 3.5 mEq/L (3.5-5.1) 12/09/17 00:40 Chloride 99 mEq/L (98-107) 12/09/17 00:40 Carbon Dioxide 28.6 mEq/L (21.0-31.0) 12/09/17 00:40 Anion Gap 12.9 (7.0-16.0) 12/09/17 00:40 BUN 20 mg/dL (7-25) 12/09/17 00:40 Creatinine 1.1 mg/dL (0.6-1.2) 12/09/17 00:40 Est GFR ( Amer) > 60.0 ml/min (>90) 12/09/17 00:40 Est GFR (Non-Af Amer) 52.8 ml/min 12/09/17 00:40 BUN/Creatinine Ratio 18.2 12/09/17 00:40 Glucose 122 mg/dL (70-105) H 12/09/17 00:40 POC Glucose 163 MG/DL (70 - 105) H 12/18/17 16:34 Hemoglobin A1c % 7.0 % (4.0-6.0) H 12/09/17 00:40 Calcium 9.5 mg/dL (8.6-10.3) 12/09/17 00:40 Total Bilirubin 0.7 mg/dL (0.3-1.0) 12/09/17 00:40 AST 25 U/L (13-39) 12/09/17 00:40 ALT 13 U/L (7-52) 12/09/17 00:40 Alkaline Phosphatase 88 U/L (34-104) 12/09/17 00:40 Total Protein 6.8 gm/dL (6.0-8.3) 12/09/17 00:40 Albumin 3.7 gm/dL (3.7-5.3) 12/09/17 00:40 Globulin 3.1 gm/dL 12/09/17 00:40 Albumin/Globulin Ratio 1.2 (1.0-1.8) 12/09/17 00:40 Triglycerides 87 mg/dL (<150) 12/09/17 00:40 Cholesterol 137 mg/dL (<200) 12/09/17 00:40 LDL Cholesterol Direct 63 mg/dL (75-193) L 12/09/17 00:40 HDL Cholesterol 56 mg/dL (23-92) 12/09/17 00:40 TSH 0.34 uIU/ml (0.34-5.60) 12/09/17 00:40 Urine Source CLEAN C 12/08/17 23:40 Urine Color YELLOW 12/08/17 23:40 Urine Clarity CLEAR (CLEAR) 12/08/17 23:40 Urine pH 6.0 (4.6 - 8.0) 12/08/17 23:40 Ur Specific [place] 1.010 (1.005-1.030) 12/08/17 23:40 Urine Protein NEGATIVE mg/dL (NEGATIVE) 12/08/17 23:40 Urine Glucose (UA) NEGATIVE mg/dL (NEGATIVE) 12/08/17 23:40 Urine Ketones NEGATIVE mg/dL (NEGATIVE) 12/08/17 23:40 Urine Blood NEGATIVE (NEGATIVE) 12/08/17 23:40 Urine Nitrate POSITIVE (NEGATIVE) H 12/08/17 23:40 Urine Bilirubin NEGATIVE (NEGATIVE) 12/08/17 23:40 Urine Urobilinogen 0.2 E.U./dL (0.2 - 1.0) 12/08/17 23:40 Ur Leukocyte Esterase NEGATIVE (NEGATIVE) 12/08/17 23:40 Urine RBC 0-2 /hpf (0-5) 12/08/17 23:40 Urine WBC 0-2 /hpf (0-5) 12/08/17 23:40 Ur Epithelial Cells FEW /lpf (FEW) 12/08/17 23:40 Urine Bacteria MODERATE /hpf (NONE SEEN) H 12/08/17 23:40 Salicylates < 25.0 mg/L (30.0-100.0) L 12/09/17 00:40 Urine Opiates Screen NEGATIVE (NEGATIVE) 12/08/17 23:40 Urine Methadone Screen NEGATIVE (NEGATIVE) 12/08/17 23:40 Acetaminophen < 10.0 ug/mL (10.0-30.0) L 12/09/17 00:40 Ur Barbiturates Screen NEGATIVE (NEGATIVE) 12/08/17 23:40 Ur Tricyclics Screen NEGATIVE (NEGATIVE) 12/08/17 23:40 Ur Phencyclidine Scrn NEGATIVE (NEGATIVE) 12/08/17 23:40 Amphetamines Screen NEGATIVE (NEGATIVE) 12/08/17 23:40 U Methamphetamines Scrn NEGATIVE (NEGATIVE) 12/08/17 23:40 U Benzodiazepines Scrn POSITIVE (NEGATIVE) H 12/08/17 23:40 U Cocaine Metab Screen NEGATIVE (NEGATIVE) 12/08/17 23:40 U Cannabinoids Screen NEGATIVE (NEGATIVE) 12/08/17 23:40 Ethyl Alcohol < 10 mg/dL (0-10) 12/09/17 00:40 RPR NONREACTIVE (NONREACTIVE) 12/09/17 00:40 - Physical Exam Vitals and I&O: Vital Signs Temp 97.7 F 12/19/17 05:58 Pulse 63 12/19/17 10:07 Resp 20 12/19/17 05:58 BP 147/68 12/19/17 10:07 Pulse Ox 95 12/19/17 05:58 Intake & Output 12/18/17 12/19/17 12/19/17 18:59 06:59 18:59 Intake Total 1200 300 Balance 1200 300 Intake: Oral 1200 300 Other: # Voids 3 2 # Bowel Movements 1 0 Active Medications: Current Medications Acetaminophen/Hydrocodone Bitart ([place] 5mg/325mg) 1 tab PO TID PRN PRN Reason: Pain (Moderate) Stop: 02/12/18 13:08 Last Admin: 12/19/17 13:53 Dose: 1 tab Amlodipine Besylate (Norvasc) 5 mg PO DAILY [facility] Stop: 02/16/18 08:59 Last Admin: 12/19/17 09:11 Dose: 5 mg Aspirin (Ecotrin) 81 mg PO DAILY [facility] Stop: 02/07/18 08:59 Last Admin: 12/19/17 09:11 Dose: 81 mg Baclofen (Lioresal) 10 mg PO BID [facility] Stop: 02/07/18 08:59 Last Admin: 12/19/17 09:10 Dose: 10 mg Cholecalciferol (Vitamin D3) 2,000 iu PO DAILY [facility] Stop: 02/07/18 08:59 Last Admin: 12/19/17 09:07 Dose: 2,000 iu Diclofenac Sodium (Voltaren) 25 mg PO HS [facility] Stop: 02/08/18 20:59 Last Admin: 12/18/17 21:11 Dose: 25 mg Diltiazem HCl (Cardizem) 30 mg PO DAILY [facility] Stop: 02/07/18 08:59 Last Admin: 12/19/17 09:13 Dose: 30 mg Docusate Sodium (Colace) 250 mg PO DAILY [facility] Stop: 02/07/18 08:59 Last Admin: 12/19/17 09:09 Dose: 250 mg Duloxetine HCl (Cymbalta) 60 mg PO DAILY [facility] Stop: 02/07/18 08:59 Last Admin: 12/19/17 09:09 Dose: 60 mg Famotidine (Pepcid) 20 mg PO BID [facility] Stop: 02/07/18 08:59 Last Admin: 12/19/17 09:10 Dose: 20 mg Gabapentin (Neurontin) 600 mg PO TID [facility] Stop: 02/07/18 08:59 Last Admin: 12/19/17 13:53 Dose: 600 mg Lamotrigine (Lamictal) 100 mg PO DAILY [facility] PRN Reason: Protocol Stop: 02/07/18 08:59 Last Admin: 12/19/17 09:10 Dose: 100 mg Lorazepam (Ativan) 1 mg PO Q6HR PRN; Protocol PRN Reason: Anxiety Stop: 02/07/18 03:14 Last Admin: 12/19/17 13:53 Dose: 1 mg Memantine (Namenda) 10 mg PO DAILY [facility] Stop: 02/07/18 08:59 Last Admin: 12/19/17 09:11 Dose: 10 mg Metformin HCl (Glucophage) 1,000 mg PO BIDWM [facility] Stop: 02/07/18 07:59 Last Admin: 12/19/17 08:07 Dose: 1,000 mg Nitroglycerin (Nitrostat) 0.4 mg SL Q5MIN PRN PRN Reason: Chest Pain Stop: 02/07/18 03:14 Oxybutynin Chloride (Ditropan) 5 mg PO BID [facility] Stop: 02/07/18 08:59 Last Admin: 12/19/17 09:10 Dose: 5 mg Pyridostigmine [place] (Mestinon) 60 mg PO BID [facility] Stop: 02/07/18 08:59 Last Admin: 12/19/17 09:14 Dose: 60 mg Quetiapine Fumarate (Seroquel) 37.5 mg PO BID [facility] PRN Reason: Protocol Stop: 02/14/18 06:39 Last Admin: 12/19/17 09:09 Dose: 37.5 mg Trazodone HCl (Desyrel) 50 mg PO HS [facility] PRN Reason: Protocol Stop: 02/07/18 20:59 Last Admin: 12/18/17 21:11 Dose: 50 mg Valsartan (Diovan) 160 mg PO BID [facility] Stop: 02/07/18 08:59 Last Admin: 12/19/17 09:07 Dose: 160 mg Assessment/Plan - Assessment Assessment: psychosis anemia dm - Plan Plan: cpm Nutritional Asmnt/Malnutr-PDOC - Dietary Evaluation Malnutrition Findings (Please click <Entered> for more info): Nutritional Asmnt/Malnutrition Start: 12/14/17 17: 19 Text: Status: Complete Freq: Document 12/14/17 17:19 RINKU (Rec: 12/14/17 17:26 [email or web address]) Nutritional Asmnt/Malnutrition Patient General Information Nutritional Screening Moderate Risk Diagnosis psychosis nos Pertinent Medical Hx/Surgical Hx COPD, heart disease, s/o pacemaker, fiberomyaliga, bipolar Subjective Information Per EMR, PO intake 75-100%. Current Diet Order/ Nutrition Support Cardiac, CCHO-60gm. Pertinent Medications vit D3, colace, glucophage, seroquel Pertinent Labs 12/09 glucose 122, a1c 7.0 12/09-12/10 POC 109-127 Nutritional Hx/Data Height 1.65 m Height (Calculated Centimeters) 165.1 Current Weight (lbs) 72.575 kg Weight (Calculated Kilograms) 72.6 Weight (Calculated Grams) 94693.8 [place] Body Weight 125 Body Mass Index (BMI) 26.6 Weight Status Overweight GI Symptoms GI Symptoms None Last BM 12/13 Difficult in: None Skin Integrity/Comment: intact Current %PO Good (75-100%) Estimated Nutritional Goals BEE in Kcals: Adj wt of IBW Calories/Kcals/Kg 25-30 Kcals Calculated 0273-0854 Protein: Adj wt of IBW Protein g/k-1.2 Protein Calculated 61-73 Fluid: ml 1525-1830ml (1ml/kcal) Nutritional Problem 1. Problem Problem altered nutrition related labs Etiology endocrine dysfunction Signs/Symptoms: glucose 122, a1c 7.0, POC 109- 127 Malnutrition Alert Protein-Calorie Malnutrition N/A Is there a minimum of two criteria No selected? Query Text:Check all the applicable criteria. A minimum of two criteria are recommended for diagnosis of either severe or non-severe malnutrition. Intervention/Recommendation Comments 1. Continue with cardiac, CCHO -60gm diet as ordered. 2. Monitor PO intake, wt, labs and skin integrity 3. F/U as lowr risk in 7 days, 12/21 Expected Outcomes/Goals Expected Outcomes/Goals 1. PO intake to meet at least 75% of nutritional needs. 2. Wt stability, skin to remain intact, labs to approach WNL.
[2017-12-20] MEDS: Hydrocodone/APAP 5mg/325mg Tab PO PRN ×3 (01:23→22:33)
[2017-12-20] MEDS: Diltiazem 30 mg Tab PO SCH (08:40)
--- NOTE | 2017-12-21 01:57 | Progress Notes ---
DATE: 12/20/2017 SUBJECTIVE: Chart reviewed and the patient interviewed. Also discussed the patient's condition with the staff and reviewed records and labs. The patient is still manipulative and is still attention seeking. The patient also is still in angry mood and she tends to at times stay by herself and aggravate herself and other times tend to have episodes of anger. She also is still having mood swings. Otherwise, the patient is compliant with taking her medications, with no side effect of medications. ASSESSMENT: The patient is still manipulative, depressed, need close monitoring. TREATMENT PLAN: Continue to monitor her behavior and her condition closely. Also, continue to work on her irritability and followup. JOB# [id number]
[2017-12-21] MEDS: Diltiazem 30 mg Tab PO SCH (08:21)
--- NOTE | 2017-12-21 08:58 | General Progress Note ---
Subjective - Review of Systems Events since last encounter: patient withdrawn denies pain no distress Objective - Results Result Diagrams: 12/09/17 00:29 12/09/17 00:40 Recent Labs: Laboratory Last Values WBC 4.6 Th/cmm (4.8-10.8) L 12/09/17 00:29 RBC 5.00 Mil/cmm (3.80-5.20) 12/09/17 00:29 Hgb 12.1 gm/dL (12-16) 12/09/17 00:29 Hct 37.6 % (41.0-60) L 12/09/17 00:29 MCV 75.2 fl (81-100) L 12/09/17 00:29 MCH 24.2 pg (27.0-31.0) L 12/09/17 00:29 MCHC Differential 32.2 pg (28.0-36.0) 12/09/17 00: RDW 15.8 % (11.5-20.0) 12/09/17 00: Plt Count 244 Th/cmm (150-400) 12/09/17 00:29 MPV 8.2 fl 12/09/17 00:29 Neutrophils % 44.6 % (40.0-80.0) 12/09/17 00: Lymphocytes % 46.1 % (20.0-50.0) 12/09/17: Monocytes % 2.9 % (2.0-10.0) 12/09/17 00: Eosinophils % 3.1 % (0.0-5.0) 12/09/17 00: Basophils % 3.3 % (0.0-2.0) H 12/09/17 00:29 Sodium 137 mEq/L (136-145) 12/09/17 00:40 Potassium 3.5 mEq/L (3.5-5.1) 12/09/17 00:40 Chloride 99 mEq/L (98-107) 12/09/17 00:40 Carbon Dioxide 28.6 mEq/L (21.0-31.0) 12/09/17 00:40 Anion Gap 12.9 (7.0-16.0) 12/09/17 00:40 BUN 20 mg/dL (7-25) 12/09/17 00:40 Creatinine 1.1 mg/dL (0.6-1.2) 12/09/17 00:40 Est GFR ( Amer) > 60.0 ml/min (>90) 12/09/17 00:40 Est GFR (Non-Af Amer) 52.8 ml/min 12/09/17 00:40 BUN/Creatinine Ratio 18.2 12/09/17 00:40 Glucose 122 mg/dL (70-105) H 12/09/17 00:40 POC Glucose 163 MG/DL (70 - 105) H 12/18/17 16:34 Hemoglobin A1c % 7.0 % (4.0-6.0) H 12/09/17 00:40 Calcium 9.5 mg/dL (8.6-10.3) 12/09/17 00:40 Total Bilirubin 0.7 mg/dL (0.3-1.0) 12/09/17 00:40 AST 25 U/L (13-39) 12/09/17 00:40 ALT 13 U/L (7-52) 12/09/17 00:40 Alkaline Phosphatase 88 U/L (34-104) 12/09/17 00:40 Total Protein 6.8 gm/dL (6.0-8.3) 12/09/17 00:40 Albumin 3.7 gm/dL (3.7-5.3) 12/09/17 00:40 Globulin 3.1 gm/dL 12/09/17 00:40 Albumin/Globulin Ratio 1.2 (1.0-1.8) 12/09/17 00:40 Triglycerides 87 mg/dL (<150) 12/09/17 00:40 Cholesterol 137 mg/dL (<200) 12/09/17 00:40 LDL Cholesterol Direct 63 mg/dL (75-193) L 12/09/17 00:40 HDL Cholesterol 56 mg/dL (23-92) 12/09/17 00:40 TSH 0.34 uIU/ml (0.34-5.60) 12/09/17 00:40 Urine Source CLEAN C 12/08/17 23:40 Urine Color YELLOW 12/08/17 23:40 Urine Clarity CLEAR (CLEAR) 12/08/17 23:40 Urine pH 6.0 (4.6 - 8.0) 12/08/17 23:40 Ur Specific [place] 1.010 (1.005-1.030) 12/08/17 23:40 Urine Protein NEGATIVE mg/dL (NEGATIVE) 12/08/17 23:40 Urine Glucose (UA) NEGATIVE mg/dL (NEGATIVE) 12/08/17 23:40 Urine Ketones NEGATIVE mg/dL (NEGATIVE) 12/08/17 23:40 Urine Blood NEGATIVE (NEGATIVE) 12/08/17 23:40 Urine Nitrate POSITIVE (NEGATIVE) H 12/08/17 23:40 Urine Bilirubin NEGATIVE (NEGATIVE) 12/08/17 23:40 Urine Urobilinogen 0.2 E.U./dL (0.2 - 1.0) 12/08/17 23:40 Ur Leukocyte Esterase NEGATIVE (NEGATIVE) 12/08/17 23:40 Urine RBC 0-2 /hpf (0-5) 12/08/17 23:40 Urine WBC 0-2 /hpf (0-5) 12/08/17 23:40 Ur Epithelial Cells FEW /lpf (FEW) 12/08/17 23:40 Urine Bacteria MODERATE /hpf (NONE SEEN) H 12/08/17 23:40 Salicylates < 25.0 mg/L (30.0-100.0) L 12/09/17 00:40 Urine Opiates Screen NEGATIVE (NEGATIVE) 12/08/17 23:40 Urine Methadone Screen NEGATIVE (NEGATIVE) 12/08/17 23:40 Acetaminophen < 10.0 ug/mL (10.0-30.0) L 12/09/17 00:40 Ur Barbiturates Screen NEGATIVE (NEGATIVE) 12/08/17 23:40 Ur Tricyclics Screen NEGATIVE (NEGATIVE) 12/08/17 23:40 Ur Phencyclidine Scrn NEGATIVE (NEGATIVE) 12/08/17 23:40 Amphetamines Screen NEGATIVE (NEGATIVE) 12/08/17 23:40 U Methamphetamines Scrn NEGATIVE (NEGATIVE) 12/08/17 23:40 U Benzodiazepines Scrn POSITIVE (NEGATIVE) H 12/08/17 23:40 U Cocaine Metab Screen NEGATIVE (NEGATIVE) 12/08/17 23:40 U Cannabinoids Screen NEGATIVE (NEGATIVE) 12/08/17 23:40 Ethyl Alcohol < 10 mg/dL (0-10) 12/09/17 00:40 RPR NONREACTIVE (NONREACTIVE) 12/09/17 00:40 - Physical Exam Vitals and I&O: Vital Signs Temp 97.1 F 12/21/17 07:02 Pulse 61 12/21/17 08:21 Resp 20 12/21/17 07:02 BP 126/72 12/21/17 08:15 Pulse Ox 95 12/21/17 07:02 Intake & Output 12/20/17 12/21/17 12/21/17 18:59 06:59 18:59 Intake Total 900 240 Balance 900 240 Intake: Oral 900 240 Other: # Voids 3 1 # Bowel Movements 1 Active Medications: Current Medications Acetaminophen/Hydrocodone Bitart ([place] 5mg/325mg) 1 tab PO TID PRN PRN Reason: Pain (Moderate) Stop: 02/12/18 13:08 Last Admin: 12/20/17 22:33 Dose: 1 tab Amlodipine Besylate (Norvasc) 5 mg PO DAILY [facility] Stop: 02/16/18 08:59 Last Admin: 12/21/17 08:15 Dose: 5 mg Aspirin (Ecotrin) 81 mg PO DAILY [facility] Stop: 02/07/18 08:59 Last Admin: 12/21/17 08:14 Dose: 81 mg Baclofen (Lioresal) 10 mg PO BID [facility] Stop: 02/07/18 08:59 Last Admin: 12/21/17 08:14 Dose: 10 mg Cholecalciferol (Vitamin D3) 2,000 iu PO DAILY [facility] Stop: 02/07/18 08:59 Last Admin: 12/21/17 08:13 Dose: 2,000 iu Diclofenac Sodium (Voltaren) 25 mg PO HS [facility] Stop: 02/08/18 20:59 Last Admin: 12/20/17 20:29 Dose: 25 mg Diltiazem HCl (Cardizem) 30 mg PO DAILY [facility] Stop: 02/07/18 08:59 Last Admin: 12/21/17 08:21 Dose: 30 mg Docusate Sodium (Colace) 250 mg PO DAILY [facility] Stop: 02/07/18 08:59 Last Admin: 12/21/17 08:13 Dose: 250 mg Duloxetine HCl (Cymbalta) 60 mg PO DAILY [facility] Stop: 02/07/18 08:59 Last Admin: 12/21/17 08:11 Dose: 60 mg Famotidine (Pepcid) 20 mg PO BID [facility] Stop: 02/07/18 08:59 Last Admin: 12/21/17 08:16 Dose: 20 mg Gabapentin (Neurontin) 600 mg PO TID [facility] Stop: 02/07/18 08:59 Last Admin: 12/21/17 08:15 Dose: 600 mg Lamotrigine (Lamictal) 100 mg PO DAILY [facility] PRN Reason: Protocol Stop: 02/07/18 08:59 Last Admin: 12/21/17 08:16 Dose: 100 mg Lorazepam (Ativan) 1 mg PO Q6HR PRN; Protocol PRN Reason: Anxiety Stop: 02/07/18 03:14 Last Admin: 12/20/17 21:39 Dose: 1 mg Memantine (Namenda) 10 mg PO DAILY [facility] Stop: 02/07/18 08:59 Last Admin: 12/21/17 08:14 Dose: 10 mg Metformin HCl (Glucophage) 1,000 mg PO BIDWM [facility] Stop: 02/07/18 07:59 Last Admin: 12/21/17 08:14 Dose: 1,000 mg Nitroglycerin (Nitrostat) 0.4 mg SL Q5MIN PRN PRN Reason: Chest Pain Stop: 02/07/18 03:14 Oxybutynin Chloride (Ditropan) 5 mg PO BID [facility] Stop: 02/07/18 08:59 Last Admin: 12/21/17 08:15 Dose: 5 mg Pyridostigmine [place] (Mestinon) 60 mg PO BID [facility] Stop: 02/07/18 08:59 Last Admin: 12/21/17 08:21 Dose: 60 mg Quetiapine Fumarate (Seroquel) 50 mg PO BID [facility] PRN Reason: Protocol Stop: 02/19/18 06:33 Last Admin: 12/21/17 08:16 Dose: 50 mg Trazodone HCl (Desyrel) 50 mg PO HS [facility] PRN Reason: Protocol Stop: 02/07/18 20:59 Last Admin: 12/20/17 20:28 Dose: 50 mg Valsartan (Diovan) 160 mg PO BID [facility] Stop: 02/07/18 08:59 Last Admin: 12/21/17 08:14 Dose: 160 mg Assessment/Plan - Assessment Assessment: psychosis anemia dm - Plan Plan: cpm Nutritional Asmnt/Malnutr-PDOC - Dietary Evaluation Malnutrition Findings (Please click <Entered> for more info): Nutritional Asmnt/Malnutrition Start: 12/14/17 17: 19 Text: Status: Complete Freq: Document 12/14/17 17:19 NOVAKEIKO (Rec: 12/14/17 17:26 [email or web address]) Nutritional Asmnt/Malnutrition Patient General Information Nutritional Screening Moderate Risk Diagnosis psychosis nos Pertinent Medical Hx/Surgical Hx COPD, heart disease, s/o pacemaker, fiberomyaliga, bipolar Subjective Information Per EMR, PO intake 75-100%. Current Diet Order/ Nutrition Support Cardiac, CCHO-60gm. Pertinent Medications vit D3, colace, glucophage, seroquel Pertinent Labs 12/09 glucose 122, a1c 7.0 12/09-12/10 POC 109-127 Nutritional Hx/Data Height 1.65 m Height (Calculated Centimeters) 165.1 Current Weight (lbs) 72.575 kg Weight (Calculated Kilograms) 72.6 Weight (Calculated Grams) 58637.8 [place] Body Weight 125 Body Mass Index (BMI) 26.6 Weight Status Overweight GI Symptoms GI Symptoms None Last BM 12/13 Difficult in: None Skin Integrity/Comment: intact Current %PO Good (75-100%) Estimated Nutritional Goals BEE in Kcals: Adj wt of IBW Calories/Kcals/Kg 25-30 Kcals Calculated 1538-1397 Protein: Adj wt of IBW Protein g/k-1.2 Protein Calculated 61-73 Fluid: ml 1525-1830ml (1ml/kcal) Nutritional Problem 1. Problem Problem altered nutrition related labs Etiology endocrine dysfunction Signs/Symptoms: glucose 122, a1c 7.0, POC 109- 127 Malnutrition Alert Protein-Calorie Malnutrition N/A Is there a minimum of two criteria No selected? Query Text:Check all the applicable criteria. A minimum of two criteria are recommended for diagnosis of either severe or non-severe malnutrition. Intervention/Recommendation Comments 1. Continue with cardiac, CCHO -60gm diet as ordered. 2. Monitor PO intake, wt, labs and skin integrity 3. F/U as lowr risk in 7 days, 12/21 Expected Outcomes/Goals Expected Outcomes/Goals 1. PO intake to meet at least 75% of nutritional needs. 2. Wt stability, skin to remain intact, labs to approach WNL.
[2017-12-21] MEDS: Hydrocodone/APAP 5mg/325mg Tab PO PRN ×3 (10:37→23:57)
--- NOTE | 2017-12-22 05:30 | Progress Notes ---
DATE: 12/21/2017 SUBJECTIVE: Chart reviewed and the patient interviewed. Also discussed the patient's condition with the staff and reviewed records and labs. The patient seems to be slightly calmer, but she is still depressed. The patient also is forgetful and she is still feeling hopeless at times. The patient also complaining of lack of energy and lack of motivations. She also is still having mood swings. Otherwise, the patient continued to comply with taking her medications with no side effects of medications. ASSESSMENT: The patient is still depressed and anxious. TREATMENT PLAN: Continue Lamictal, Namenda and trazodone, but we will decrease Seroquel to 50 mg twice a day. Also, continue to monitor her behavior and her medications closely. Also, we will continue working on discharge plans and placement issue after her discharge. [facility]# [id number]
[2017-12-22] MEDS: Hydrocodone/APAP 5mg/325mg Tab PO PRN ×2 (07:01→18:44)
--- NOTE | 2017-12-22 08:33 | General Progress Note ---
Subjective - Review of Systems Events since last encounter: patient still depressed and confused Objective - Results Result Diagrams: 12/09/17 00:29 12/09/17 00:40 Recent Labs: Laboratory Last Values WBC 4.6 Th/cmm (4.8-10.8) L 12/09/17 00:29 RBC 5.00 Mil/cmm (3.80-5.20) 12/09/17 00:29 Hgb 12.1 gm/dL (12-16) 12/09/17 00:29 Hct 37.6 % (41.0-60) L 12/09/17 00:29 MCV 75.2 fl (81-100) L 12/09/17 00:29 MCH 24.2 pg (27.0-31.0) L 12/09/17:29 MCHC Differential 32.2 pg (28.0-36.0) 12/09/17 00: RDW 15.8 % (11.5-20.0) 12/09/17 00: Plt Count 244 Th/cmm (150-400) 12/09/17 00: MPV 8.2 fl 12/09/17 00:29 Neutrophils % 44.6 % (40.0-80.0) 12/09/17: Lymphocytes % 46.1 % (20.0-50.0) 12/09/17: Monocytes % 2.9 % (2.0-10.0) 12/09/17 00: Eosinophils % 3.1 % (0.0-5.0) 12/09/17 00: Basophils % 3.3 % (0.0-2.0) H 12/09/17 00:29 Sodium 137 mEq/L (136-145) 12/09/17 00:40 Potassium 3.5 mEq/L (3.5-5.1) 12/09/17 00:40 Chloride 99 mEq/L (98-107) 12/09/17 00:40 Carbon Dioxide 28.6 mEq/L (21.0-31.0) 12/09/17 00:40 Anion Gap 12.9 (7.0-16.0) 12/09/17 00:40 BUN 20 mg/dL (7-25) 12/09/17 00:40 Creatinine 1.1 mg/dL (0.6-1.2) 12/09/17 00:40 Est GFR ( Amer) > 60.0 ml/min (>90) 12/09/17 00:40 Est GFR (Non-Af Amer) 52.8 ml/min 12/09/17 00:40 BUN/Creatinine Ratio 18.2 12/09/17 00:40 Glucose 122 mg/dL (70-105) H 12/09/17 00:40 POC Glucose 163 MG/DL (70 - 105) H 12/18/17 16:34 Hemoglobin A1c % 7.0 % (4.0-6.0) H 12/09/17 00:40 Calcium 9.5 mg/dL (8.6-10.3) 12/09/17 00:40 Total Bilirubin 0.7 mg/dL (0.3-1.0) 12/09/17 00:40 AST 25 U/L (13-39) 12/09/17 00:40 ALT 13 U/L (7-52) 12/09/17 00:40 Alkaline Phosphatase 88 U/L (34-104) 12/09/17 00:40 Total Protein 6.8 gm/dL (6.0-8.3) 12/09/17 00:40 Albumin 3.7 gm/dL (3.7-5.3) 12/09/17 00:40 Globulin 3.1 gm/dL 12/09/17 00:40 Albumin/Globulin Ratio 1.2 (1.0-1.8) 12/09/17 00:40 Triglycerides 87 mg/dL (<150) 12/09/17 00:40 Cholesterol 137 mg/dL (<200) 12/09/17 00:40 LDL Cholesterol Direct 63 mg/dL (75-193) L 12/09/17 00:40 HDL Cholesterol 56 mg/dL (23-92) 12/09/17 00:40 TSH 0.34 uIU/ml (0.34-5.60) 12/09/17 00:40 Urine Source CLEAN C 12/08/17 23:40 Urine Color YELLOW 12/08/17 23:40 Urine Clarity CLEAR (CLEAR) 12/08/17 23:40 Urine pH 6.0 (4.6 - 8.0) 12/08/17 23:40 Ur Specific [place] 1.010 (1.005-1.030) 12/08/17 23:40 Urine Protein NEGATIVE mg/dL (NEGATIVE) 12/08/17 23:40 Urine Glucose (UA) NEGATIVE mg/dL (NEGATIVE) 12/08/17 23:40 Urine Ketones NEGATIVE mg/dL (NEGATIVE) 12/08/17 23:40 Urine Blood NEGATIVE (NEGATIVE) 12/08/17 23:40 Urine Nitrate POSITIVE (NEGATIVE) H 12/08/17 23:40 Urine Bilirubin NEGATIVE (NEGATIVE) 12/08/17 23:40 Urine Urobilinogen 0.2 E.U./dL (0.2 - 1.0) 12/08/17 23:40 Ur Leukocyte Esterase NEGATIVE (NEGATIVE) 12/08/17 23:40 Urine RBC 0-2 /hpf (0-5) 12/08/17 23:40 Urine WBC 0-2 /hpf (0-5) 12/08/17 23:40 Ur Epithelial Cells FEW /lpf (FEW) 12/08/17 23:40 Urine Bacteria MODERATE /hpf (NONE SEEN) H 12/08/17 23:40 Salicylates < 25.0 mg/L (30.0-100.0) L 12/09/17 00:40 Urine Opiates Screen NEGATIVE (NEGATIVE) 12/08/17 23:40 Urine Methadone Screen NEGATIVE (NEGATIVE) 12/08/17 23:40 Acetaminophen < 10.0 ug/mL (10.0-30.0) L 12/09/17 00:40 Ur Barbiturates Screen NEGATIVE (NEGATIVE) 12/08/17 23:40 Ur Tricyclics Screen NEGATIVE (NEGATIVE) 12/08/17 23:40 Ur Phencyclidine Scrn NEGATIVE (NEGATIVE) 12/08/17 23:40 Amphetamines Screen NEGATIVE (NEGATIVE) 12/08/17 23:40 U Methamphetamines Scrn NEGATIVE (NEGATIVE) 12/08/17 23:40 U Benzodiazepines Scrn POSITIVE (NEGATIVE) H 12/08/17 23:40 U Cocaine Metab Screen NEGATIVE (NEGATIVE) 12/08/17 23:40 U Cannabinoids Screen NEGATIVE (NEGATIVE) 12/08/17 23:40 Ethyl Alcohol < 10 mg/dL (0-10) 12/09/17 00:40 RPR NONREACTIVE (NONREACTIVE) 12/09/17 00:40 - Physical Exam Vitals and I&O: Vital Signs Temp 97.9 F 12/22/17 06:19 Pulse 70 12/22/17 06:37 Resp 20 12/22/17 06:19 BP 191/84 12/22/17 06:19 Pulse Ox 98 12/22/17 06:19 Intake & Output 12/21/17 12/22/17 12/22/17 18:59 06:59 18:59 Intake Total 1500 120 Balance 1500 120 Intake: Oral 1500 120 Other: # Voids 3 3 Active Medications: Current Medications Acetaminophen/Hydrocodone Bitart ([place] 5mg/325mg) 1 tab PO TID PRN PRN Reason: Pain (Moderate) Stop: 02/12/18 13:08 Last Admin: 12/22/17 07:01 Dose: 1 tab Amlodipine Besylate (Norvasc) 5 mg PO DAILY [facility] Stop: 02/16/18 08:59 Last Admin: 12/21/17 08:15 Dose: 5 mg Aspirin (Ecotrin) 81 mg PO DAILY [facility] Stop: 02/07/18 08:59 Last Admin: 12/21/17 08:14 Dose: 81 mg Baclofen (Lioresal) 10 mg PO BID [facility] Stop: 02/07/18 08:59 Last Admin: 12/21/17 16:29 Dose: 10 mg Cholecalciferol (Vitamin D3) 2,000 iu PO DAILY [facility] Stop: 02/07/18 08:59 Last Admin: 12/21/17 08:13 Dose: 2,000 iu Diclofenac Sodium (Voltaren) 25 mg PO HS [facility] Stop: 02/08/18 20:59 Last Admin: 12/21/17 20:49 Dose: 25 mg Diltiazem HCl (Cardizem) 30 mg PO DAILY [facility] Stop: 02/07/18 08:59 Last Admin: 12/21/17 08:21 Dose: 30 mg Docusate Sodium (Colace) 250 mg PO DAILY [facility] Stop: 02/07/18 08:59 Last Admin: 12/21/17 08:13 Dose: 250 mg Duloxetine HCl (Cymbalta) 60 mg PO BID [facility] Stop: 02/20/18 08:59 Famotidine (Pepcid) 20 mg PO BID [facility] Stop: 02/07/18 08:59 Last Admin: 12/21/17 16:30 Dose: 20 mg Gabapentin (Neurontin) 600 mg PO TID [facility] Stop: 02/07/18 08:59 Last Admin: 12/21/17 20:49 Dose: 600 mg Lamotrigine (Lamictal) 100 mg PO DAILY [facility] PRN Reason: Protocol Stop: 02/07/18 08:59 Last Admin: 12/21/17 08:16 Dose: 100 mg Lorazepam (Ativan) 1 mg PO Q6HR PRN; Protocol PRN Reason: Anxiety Stop: 02/07/18 03:14 Last Admin: 12/21/17 20:49 Dose: 1 mg Memantine (Namenda) 10 mg PO DAILY [facility] Stop: 02/07/18 08:59 Last Admin: 12/21/17 08:14 Dose: 10 mg Metformin HCl (Glucophage) 1,000 mg PO BIDWM [facility] Stop: 02/07/18 07:59 Last Admin: 12/21/17 17:37 Dose: Not Given Nitroglycerin (Nitrostat) 0.4 mg SL Q5MIN PRN PRN Reason: Chest Pain Stop: 02/07/18 03:14 Oxybutynin Chloride (Ditropan) 5 mg PO BID [facility] Stop: 02/07/18 08:59 Last Admin: 12/21/17 16:30 Dose: 5 mg Pyridostigmine Christine (Mestinon) 60 mg PO BID [facility] Stop: 02/07/18 08:59 Last Admin: 12/21/17 16:38 Dose: 60 mg Quetiapine Fumarate (Seroquel) 50 mg PO BID [facility] PRN Reason: Protocol Stop: 02/19/18 06:33 Last Admin: 12/21/17 16:29 Dose: 50 mg Trazodone HCl (Desyrel) 50 mg PO HS [facility] PRN Reason: Protocol Stop: 02/07/18 20:59 Last Admin: 12/21/17 20:49 Dose: 50 mg Valsartan (Diovan) 160 mg PO BID [facility] Stop: 02/07/18 08:59 Last Admin: 12/21/17 16:29 Dose: 160 mg Assessment/Plan - Assessment Assessment: psychosis anemia dm - Plan Plan: cpm Nutritional Asmnt/Malnutr-PDOC - Dietary Evaluation Malnutrition Findings (Please click <Entered> for more info): Nutritional Asmnt/Malnutrition Start: 12/14/17 17: 19 Text: Status: Complete Freq: Document 12/14/17 17:19 [email or web address] (Rec: 12/14/17 17:26 [id number]) Nutritional Asmnt/Malnutrition Patient General Information Nutritional Screening Moderate Risk Diagnosis psychosis nos Pertinent Medical Hx/Surgical Hx COPD, heart disease, s/o pacemaker, fiberomyaliga, bipolar Subjective Information Per EMR, PO intake 75-100%. Current Diet Order/ Nutrition Support Cardiac, CCHO-60gm. Pertinent Medications vit D3, colace, glucophage, seroquel Pertinent Labs 12/09 glucose 122, a1c 7.0 12/09-12/10 POC 109-127 Nutritional Hx/Data Height 1.65 m Height (Calculated Centimeters) 165.1 Current Weight (lbs) 72.575 kg Weight (Calculated Kilograms) 72.6 Weight (Calculated Grams) 68913.8 [place] Body Weight 125 Body Mass Index (BMI) 26.6 Weight Status Overweight GI Symptoms GI Symptoms None Last BM 12/13 Difficult in: None Skin Integrity/Comment: intact Current %PO Good (75-100%) Estimated Nutritional Goals BEE in Kcals: Adj wt of IBW Calories/Kcals/Kg 25-30 Kcals Calculated 8174-8560 Protein: Adj wt of IBW Protein g/k-1.2 Protein Calculated 61-73 Fluid: ml 1525-1830ml (1ml/kcal) Nutritional Problem 1. Problem Problem altered nutrition related labs Etiology endocrine dysfunction Signs/Symptoms: glucose 122, a1c 7.0, POC 109- 127 Malnutrition Alert Protein-Calorie Malnutrition N/A Is there a minimum of two criteria No selected? Query Text:Check all the applicable criteria. A minimum of two criteria are recommended for diagnosis of either severe or non-severe malnutrition. Intervention/Recommendation Comments 1. Continue with cardiac, CCHO -60gm diet as ordered. 2. Monitor PO intake, wt, labs and skin integrity 3. F/U as lowr risk in 7 days, 12/21 Expected Outcomes/Goals Expected Outcomes/Goals 1. PO intake to meet at least 75% of nutritional needs. 2. Wt stability, skin to remain intact, labs to approach WNL.
[2017-12-22] MEDS: Diltiazem 30 mg Tab PO SCH (09:40)
--- NOTE | 2017-12-22 22:31 | Progress Notes ---
DATE: 12/22/2017 SUBJECTIVE: Chart reviewed. The patient interviewed. Also discussed the patient's condition with the staff and reviewed records and labs. The patient is still having episodes of anger and irritability. The patient also is still suspicious and is still paranoid and she is in angry mood and she is asking for more pain medications. She wants to get tramadol and ____. The patient also seems to be addicted to pain due to tramadol. Otherwise, the patient is denying any thoughts of suicide or homicide. ASSESSMENT: The patient is still depressed. TREATMENT PLAN: We will increase Cymbalta to 60 mg twice a day. Also, continue to monitor her behavior and her condition closely. [facility]# [id number]
[2017-12-23] MEDS: Hydrocodone/APAP 5mg/325mg Tab PO PRN ×2 (06:10→12:37)
[2017-12-23] MEDS: Diltiazem 30 mg Tab PO SCH (09:23)
--- NOTE | 2017-12-25 05:53 | Discharge Summary ---
DATE OF DISCHARGE: 12/23/2017 PATIENT'S AGE: 67. SEX: Female. PHYSICIAN: Diana Us MD, MPH FINAL DIAGNOSES: PRIMARY DIAGNOSIS: Schizoaffective disorder, bipolar type, severe, with psychotic features. REASON FOR HOSPITALIZATION: The patient was admitted to the hospital because of increased agitation and irritability. The patient also was restless and was aggressive. HOSPITAL COURSE: The patient continued to be in angry and in irritable mood. The patient also was agitated and needed lots of redirections. She also was actively hallucinating and psychotic at times. She also was not able to follow staff directions. The patient was given Seroquel and the dose adjusted and gradually the patient's affect was brighter and the patient was less agitated and less psychotic and interact slightly more with peers and with others. Placement was an issue and ____ accepted the patient and the patient was discharged there. Physical exam of the patient showed no major medical problems, and the patient had no major medical problems while in the hospital. AFTER DISCHARGE PLANS: The patient discharged from the hospital and went to [facility] and continue to work on after physical rehabilitation and can continue to follow up there. JOB# [id number]
== END 2017-12-23 13:30 | DRG 885 ==
LOC: ER 20:45 → GERO2 12-09 01:40 → GERO 12-09 14:11
PROVIDERS: ADMIT Psychiatry & Neurology Psychiatry; ATTEND Psychiatry & Neurology Psychiatry
DX: F31.5 Bipolar disorder, current episode depressed, severe, with psychotic features (principal); F23 Brief psychotic disorder; N39.0 Urinary tract infection, site not specified; F03.91 Unspecified dementia, unspecified severity, with behavioral disturbance; J44.9 Chronic obstructive pulmonary disease, unspecified; I10 Essential (primary) hypertension; I25.10 Atherosclerotic heart disease of native coronary artery without angina pectoris; D64.9 Anemia, unspecified; E11.40 Type 2 diabetes mellitus with diabetic neuropathy, unspecified; K21.9 Gastro-esophageal reflux disease without esophagitis; M19.90 Unspecified osteoarthritis, unspecified site; E55.9 Vitamin D deficiency, unspecified; E78.5 Hyperlipidemia, unspecified; Z95.0 Presence of cardiac pacemaker; Z95.1 Presence of aortocoronary bypass graft; Z82.49 Family history of ischemic heart disease and other diseases of the circulatory system
CPT/HCPCS: 36415-UA; 80053-TC; 80061-TC; 80307; 80320-TC; 80329-TC; 81001-TC; 81003-TC; 82948-90; 83036-90; 84443-TC; 85025-TC; 86592-TC; 87086-90; 90899; 93005; G0410; J1200; J1630; J2060; Z7610